=== PATIENT | male | born 1950 | race Caucasian/White ===

== ENCOUNTER 2022-03-01 14:35 | Outpatient (CLI) | payer MEDICARE, BC, SELFPAY | END 2022-03-01 14:36 | disposition home or self-care (01) | LOC: INJ CL 14:37 | PROVIDERS: Visit Provider Family Medicine | DX: M17.11 Unilateral primary osteoarthritis, right knee (principal); M25.561 Pain in right knee | CPT/HCPCS: 64454 ==

== ENCOUNTER 2022-03-15 12:08 | Outpatient (CLI) | payer MEDICARE, BC, SELFPAY | END 2022-03-15 12:09 | disposition home or self-care (01) | LOC: INJ CL 12:10 | PROVIDERS: PCP Internal Medicine; Visit Provider Family Medicine | DX: M17.11 Unilateral primary osteoarthritis, right knee (principal); M25.561 Pain in right knee; G89.29 Other chronic pain | CPT/HCPCS: 64624; J2250; J3010 ==

== ENCOUNTER 2022-09-02 10:48 | Outpatient (RCR) | payer MEDICARE, BC, SELFPAY ==
--- NOTE | 2022-09-02 11:56 | PT.OPEX ---
PT [place] [facility] Eval PT [facility] Eval Start: 09/02/22 09:34 Freq: Status: Active Protocol: Document 09/02/22 09:34 BRYAN (Rec: 09/02/22 11:53 BRYAN [id number]) E-signed By Yaneli Cruz Physical Therapy Outpatient Evaluation Insurance Information Recert Due Date 12/02/22 Insurance Name Medicare B,Blue Cross/Blue Shield Medical Diagnosis M16.11 R hip OA Z96.641 Presence of R artificial hip joint Treating Diagnosis M25.551 Pain in R hip M25.651 Stiffness of R hip Referring MD Navarro Subjective Subjective Pt presents pre-op RTHA on with Dr. Navarro. 1st joints replacement. Pt reports he has been getting cortisone injections in B hips and knees. Plans of getting R knee replacement in the near future. Pt states that hip pain started 4 years ago. Most activities are painful for patient. Uses SPC at baseline. Takes Tylenol for pain management. Pt has OP PT schedule in [place]. Pt lives with spouse who can assist. Multilevel home, 5 steps to enter B rails. Bedroom and bathroom are on main level. Tub shower and walk in shower in basement that he prefers. Shower chair in basement shower. Grab bars in tub, raised toilet seat. Has 2WW walker, 4WW, SPC, and sales service representative. Pain Comments 9.5/10 Date of Next Physician Visit 09/15/22 Date of Surgery (If applicable) 09/07/22 Current Work Status Retired Precautions Treatment Precautions/Contraindications PMHx: OA, aortic valve replacement Therapy Limitations/Systems Review Not Limited Objective Range of Motion Hip flexion L/R = 78/70 Hip IR L/R = 21/16 Hip ER L/R = 30/24 Strength Hip flexion L/R = 4/3 Hip abd L/R = 4/4 Hip add L/R = 4/4 Quads L/R = 3+/4+ Hamstrings L/R = 4/4 Balance & Gait Antalgic gait pattern with dec WB RLE, using SPC Assessment Assessment/Impression Pt presents pre-op RTHA on with Dr. Navarro. PMHx: OA, aortic valve replacement. Pt reports R hip pain for the last 4 years. Pain is exacerbated with all WB activities. Pt takes Tylenol for pain management. Has hx of cortisone injections. Pt displays impaired R hip strength and dec ROM as well as gait and balance deficits. Pt lives in multilevel home with spouse, 5 steps B rails to enter. Pt was educated on post-op precautions, HEP, POC, swelling and pain reduction strategies, equipment needs, getting up from the floor post -fall, fall prevention, and stair negotiation. Pt will be doing post-op therapy at [facility]. Primary Functional Limitations Pain with functional activity Dec R hip ROM and strength Gait deficits Plan of Care Rehabilitation Potential Excellent Physical Therapy Goals In one session: 1. Pt will be IND with HEP in order to perform at home post- op IND. 2. Pt will navigate 4 steps with B rails using proper step sequencing in order to enter/ exit home safely post-op. 3. Pt will provide verbal understanding of post-op precautions in order to reduce risk of post-op complications . Coordination/Communication With Referral Source Treatment Plan/Direct Interventions Self-Care/Home Management, Therapeutic Exercises Frequency/Duration 1x (pre-op only) Patient Will Be Discharged From Therapy Completion of LTG(s),Skills Plateau,Independent w/HEP, Independently Progressing Evaluation Billing Untimed Code Treatment Minutes 15 PT Eval No Charge No Complexity Low Certification Information Initial Certification Date 09/02/22 Ending Certification Date 12/02/22 Provider Signature Shows Agreement With POC & Medical Necessity Physician Comment/Change : Physician NPI Number #
== END 2022-10-13 10:36 | disposition home or self-care (01) ==
PROVIDERS: PCP Internal Medicine; Visit Provider Orthopaedic Surgery Sports Medicine
DX: M16.11 Unilateral primary osteoarthritis, right hip (principal); Z96.641 Presence of right artificial hip joint; Z51.89 Encounter for other specified aftercare
CPT/HCPCS: 97110; 97161; 97535

== ENCOUNTER 2022-09-05 11:27 | Outpatient (CLI) | payer MEDICARE, BC, SELFPAY | END 2022-09-05 11:28 | disposition home or self-care (01) | PROVIDERS: PCP Internal Medicine; Visit Provider Orthopaedic Surgery Sports Medicine | DX: Z01.818 Encounter for other preprocedural examination (principal) | CPT/HCPCS: 36415; 86850; 86900; 86901 ==

== ENCOUNTER 2022-09-07 10:02 | Day surgery (SDC) | payer MEDICARE, BC, SELFPAY ==
[2022-09-07] VITALS (24 sets, daily range): BP systolic 131–187; BP diastolic 78–98; PULSE 50–68; RESP 15–20; TEMP 36.2–37.2; O2SAT 96–100; BMI 29.6
[2022-09-07] MEDS: LACTATED RINGERS 1000 ML 1,000 ML 100 ML IV (11:00)
[2022-09-07] MEDS: SODIUM CHLORIDE 0.9 % (FLUSH) 10 ML SYRINGE IVF (11:00)
[2022-09-07] MEDS: ACETAMINOPHEN 500 MG TABLET 1000 MG PO ×3 (11:05→22:32)
[2022-09-07] MEDS: OXYCODONE (CR) 10 MG TAB.ER.12H PO (11:05)
--- NOTE | 2022-09-07 11:14 | CRLHL7_ITS ---
For Patients: As a result of the Cures Act, medical imaging exams and procedure reports are released immediately into your electronic medical record. You may view this report before your referring provider. If you have questions, please contact your health care provider. Indication: Postop Technique: AP hip center pelvis and lateral view right hip Findings/Impression: Hardware from a right total hip arthroplasty is in satisfactory position. Bone alignment is normal. No sign of acute fracture. Postop changes are within normal limits. Dictated by Ney Hidalgo MD @ 09/08/2022 9:58:29 AM (Electronically Signed)
[2022-09-07] MEDS: fentaNYL 100 MCG/2 ML inj IVP (11:37)
[2022-09-07] MEDS: MIDAZOLAM HCL 1 MG/ML inj IVP (11:37)
--- NOTE | 2022-09-07 11:49 | P.NB_ITS ---
Nerve Block Nerve Block Time Seen by Provider: 11:42 Date Seen: 09/07/22 Type of block requested by surgeon for post-operative analgesia: PRISCILA/LFCN Side: right Time out performed: Yes Verification of patient name: Yes Verification of date of : Yes Site marking: site marked Name of person performing procedure: Felix Continuous monitoring Was continuous monitoring of O2 sat, B/P, monitor and storage bin tender, recorded every 15 minutes?: Yes Procedure Checklist: sterile prep, needles and gloves Ultrasound guided. Images saved: Yes Medications given in 5ml increments after negative aspiration: Ropivicaine %: 0.5 mL: 30 Needle gauge: 20 Decadron (mg): 10 Precedex (mcg): 25 Patient tolerated procedure well: Yes Additional comments: Needle noted below psoas tendon needle noted adjacent to LFCN Block Charges Block Charge (with Pro Fee): Other Periph Nerve Block Use of Ultrasound Machine for Block: Yes- US Guidance/pain block
--- NOTE | 2022-09-07 11:49 | SUR.PREOP ---
TIME?OUT:?1136 PT/Jolene Millard RN/Dr. Felix MDA?VERIFICATION?OF?SURGICAL?SITE right hip,?PROCEDURE,?AND?CONSENT OBTAINED?PRIOR?TO?INVASIVE?PROCEDURE.
--- NOTE | 2022-09-07 11:50 | W.ANESCHARGE ---
Anesthesia Charges Start Date/Time Anesthesia Start Date: 09/07/22 Anesthesia Start Time: 12:26 Stop Date/Time Anesthesia Stop Date: 09/07/22 Anesthesia Stop Time: 15:19 Summary Extremes of Age - Over 70 or under 1: MDA
--- NOTE | 2022-09-07 12:00 | CRLHL7_ITS ---
For Patients: As a result of the Cures Act, medical imaging exams and procedure reports are released immediately into your electronic medical record. You may view this report before your referring provider. If you have questions, please contact your health care provider. Indication: Hip replacement surgery Technique: AP hip fluoroscopic image. Fluoroscopy time 39.2 seconds. Findings/Impression: Hardware from a right total hip arthroplasty is in satisfactory position. Dictated by Ney Hidalgo MD @ 09/08/2022 9:48:37 AM (Electronically Signed)
--- NOTE | 2022-09-07 12:12 | PM.IMPN1 ---
Progress Note: A&P Assessment and plan (1) Osteoarthritis of right hip: Problem details: extreme, [id number] Status: Acute Plan 1) s/p RTHA -pain control; diet; dvt ppx per surgery -cbc and bmp in am 2) Hx of CAD/HTN/CABG -continue norvasc -hold lisinopril and hctz for now -continue statin 3) HX of AVR 4) Hx of CKD 3 -bmp in am 5) Hx of HLD; continue statin 6) Hx of GERD; continue prevacid Subjective Date Seen: 09/07/22 Interval history: PREOPERATIVE DIAGNOSIS: 1. Right hip osteoarthritis, severe, primary PROCEDURE: 1. Right total hip arthroplasty-anterior approach ANESTHESIA: General endotracheal anesthetic EBL: 500 mL the patient is stable currently and denies CP, sob, nausea, vomiting, abdominal pain Exam Narrative: Exam Narrative: Gen: no acute distress HEENT: NCAT EOMI mmm CV: RRR normal s1 s2 Lungs: CTAB Abd: Soft,nt, nd Neuro: Alert, oriented, CN grossly intact; nonfocal screening?exam Psych: appropriate affect MSK: age appropriate muscle mass Skin; Warm, dry no rash on face Const: Vital Signs, click to edit/add: Vital Signs - 24 hr 09/07/22 11:16 09/07/22 11:37 09/07/22 11:40 Temperature 98.4 F Pulse Rate 58 L 62 61 Respiratory Rate 16 16 16 Blood Pressure 166/87 H 176/88 H 154/90 H Pulse Oximetry 97 98 100 Oxygen Delivery Me thod Room Air Nasal Cannula Nasal Cannula Oxygen Flow Rate 2 2 09/07/22 11:45 Temperature Pulse Rate 63 Respiratory Rate 16 Blood Pressure 155/91 H Pulse Oximetry 100 Oxygen Delivery Me thod Nasal Cannula Oxygen Flow Rate 2
--- NOTE | 2022-09-07 14:19 | PM.ORPRC ---
Procedure Note Date of procedure: 09/07/22 Procedure: PREOPERATIVE DIAGNOSIS: 1. Right hip osteoarthritis, severe, primary POSTOPERATIVE DIAGNOSIS: 1. Right hip osteoarthritis, severe, primary PROCEDURE: 1. Right total hip arthroplasty-anterior approach 2. 96801 - intraoperative fluoroscopy up to 1 hour. SURGEON: Garret Navarro MD. COOKER SULFATE: Gray Chávez Pac; Kathia Caceres Pac - Of note, a skilled licensed physical therapist assistant was critical for this case to aid in patient positioning, tissue retraction, limb manipulation/positioning, and closure. ANESTHESIA: General endotracheal anesthetic EBL: 500 mL IMPLANTS: DePuy J&J uncemented total hip [place] cup size 58, hole eliminator, +4 neutral liner Actis stem, standard offset, size 9 +5 mm ceramic 36 mm head COMPLICATIONS: None evident INDICATIONS: The patient is a pleasant 72-year-old male who has experienced severe right hip pain and difficulty bearing weight. Workup included x-rays which revealed severe osteoarthrosis in the hip. Given the deformity, the dysfunction, and the pain, as well as the failure of nonoperative management, recommendation was made for surgery. FINDINGS: Moderate effusion upon entering joint. Significant contracture of all soft tissues including capsule and musculotendinous structures around the hip. Full-thickness chondral loss diffusely throughout the femoral head and acetabulum. Large osteophytes around both this well. DESCRIPTION OF PROCEDURE: Following a thorough discussion of risks, benefits, and alternatives consent was obtained and the right hip was marked. The patient was brought to the operating room and placed supine on the operating table. Induction of anesthesia was undertaken. 2 g IV Ancef and 1 g tranexamic acid was administered within 1 hr of incision preoperatively. Proper time-out was performed identifying proper patient, site, procedure. The operative extremity was prepped and draped in the appropriate sterile fashion using ChloraPrep after the patient was positioned on the [place] table with head in neutral alignment and all bony prominences well padded. C-arm fluoroscopic imaging was utilized to confirm proper pelvis rotation and position, and to get true AP films of both the contralateral left, and the affected right hip. This is for comparison. A longitudinal incision was made starting approximately 1 cm distal to the ASIS, and 3-4 cm lateral. The incision was extended distally aiming toward the lateral border the patella. Sharp incision through skin and bovie cautery through the subcutaneous tissue allowed identification of the TFL fascia. This was sharply divided, and the fascia bluntly released from the muscle fibers as we dissected medial. Upon coming to the medial border, we were able to retract the TFL laterally, and penetrated the deeper fascia and identify the crossing circumflex vessels. These were ligated/cauterized. The rectus was elevated from the capsule, and retractors placed laterally and medially along the femoral neck to help with visualization of the capsule. We then performed an inverted T capsulotomy. The capsule was tagged for later repair. Retractors were placed inside the capsule. The femoral neck was visualized after releasing medially down to the lesser trochanter, along the saddle laterally, and up onto the acetabulum. The femoral neck cut was made in line with our preoperative templating. The head was removed in a single piece, and sized. We turned our attention to acetabular preparation. Initially, the labrum was resected from around the perimeter, the pulvinar was excised, allowing us to visualize the false wall. We started the reaming with a 43 mm reamer. This was medialized down to the true wall. We then enlarged our reamers sequentially up to one size less than the selected cup size. We trialed at the same size and found it to have an excellent fit. The selected cup was then opened, inserted, and impacted in line with the goal of 40? of abduction, and 20-25? of anteversion. This was confirmed on C-arm fluoroscopic imaging to be in the appropriate/goal position. Once the cup was placed we placed a hole eliminator and a liner consistent with preop planning. Attention was turned to the femoral preparation. The limb was extended, externally rotated, and adducted. The posteromedial capsule was released, as retractors were placed allowing excellent access to the proximal femur. Initially a box office agent was followed by canal finder followed by various broaches. We broached sequentially up to the size noted above, found it to have excellent rotational control, and trialing various heads and necks, revealed that appropriate neck offset, and the above noted head size provided the greatest stability, and episcopalian of length, and offset. C-arm fluoroscopic imaging confirmed position of the stem, as well as leg lengths, which were compared with the pre procedure all fluoroscopic images. Trial implants were removed, the real femoral stem inserted, as was the appropriate head. After reducing, the leg was placed through range of motion and stability was confirmed anterior, posterior, and lateral. A 3 min Betadine soak was then performed, and thorough irrigation with normal saline followed. Closure of the capsule was performed with #1 PDS. Bleeding was confirmed to be controlled at this stage, and the TFL fascia was closed with #0 strata fix. Subcutaneous, and subcuticular closure was performed with 2-0 Vicryl and 4-0 Monocryl, respectively. Dressings were applied, and the patient was awoken from anesthesia and transferred the PACU in stable condition. A skilled licensed physical therapist assistant was critical for this case to aid in patient positioning, tissue retraction, acetabular and proximal femoral exposure, limb manipulation/positioning, dislocation/relocation, patient safety, and closure. PLAN: 1. Weight bear as tolerated operative extremity. 2. 23 hr perioperative antibiotics. 3. Ice. 4. PT/OT consults for ambulation assistance/mobility education. 5. Social work consult for discharge planning. 6. DVT prophylaxis with at SCDs, Baldev [place], and Xarelto x5 days followed by aspirin for a total of 1 month..
--- NOTE | 2022-09-07 15:25 | W.ANESCHARGE ---
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
[2022-09-07] MEDS: fentaNYL 100 MCG/2 ML inj 50 MCG IVP (15:30)
[2022-09-07] MEDS: LABETALOL HCL 5 MG/ML inj IVP (15:40)
[2022-09-07] MEDS: LACTATED RINGERS 1000 ML 1,000 ML 75 ML IV (16:08)
[2022-09-07] MEDS: CEFAZOLIN 2 GM in 0.9 % SODIUM CHLORIDE Mini-bag 100 ML IVPB (18:43)
[2022-09-07] MEDS: SENNOSIDES 1 TAB TABLET 2 TAB PO (20:30)
[2022-09-07] MEDS: CELECOXIB 200 MG CAPSULE PO (20:30)
[2022-09-07] MEDS: OMEPRAZOLE 20 MG CAPSULE DR PO (22:33)
--- NOTE | 2022-09-07 23:09 | PC.NURSE ---
Shift note: Pt was received to room 260 at 1600. Alert on arrival but confirmed feeling weak. Dressing appeared clean and dry. Pain was rated at 4 on arrival. Vital signs were stable but the heart rate was low at 50. Pt was able to wiggle right toes and able move the right leg from side to side on arrival. Schedule Tylenol given which was effective in managing pain. Pt was able to ambulate with A1, walker and GB to BR. Had about 360ml of urine within 4hours of arrival. Tolerated regular diet without any abdominal symptoms.
[2022-09-08] MEDS: OXYCODONE 5 MG TABLET PO ×3 (00:06→09:44)
[2022-09-08 03:30] VITALS: BP 155/83; PULSE 78; RESP 16; TEMP 37; O2SAT 96
[2022-09-08] MEDS: CEFAZOLIN 2 GM in 0.9 % SODIUM CHLORIDE Mini-bag 100 ML IVPB (03:30)
[2022-09-08] MEDS: ACETAMINOPHEN 500 MG TABLET 1000 MG PO (03:32)
--- NOTE | 2022-09-08 06:44 | PC.NURSE ---
Pt is oriented to self x3. Afebrile. Pt reports 6/10 pain in right hip, pain managed with PRN and scheduled medications. Right hip dressing CDI. Pt denies chest pain, SOB, N/V. Pt is tolerating a regular diet and voiding. Pt is up SBA with walker and gait belt. Pt slept intermittently throughout night.?
[2022-09-08 07:01] LABS: Basophils Absolute Auto 0.01 K/uL (0.00-0.30); Basophils Percent Auto 0.1 % (0.0-3.0); Eosinophils Absolute Auto 0.01 K/uL (0.00-0.50); Eosinophils Percent Auto 0.1 % (0.0-7.0); Hematocrit 31.4 % (37.0-53.0); Immature Granulocytes Abs Auto 0.04 K/uL (0.00-0.30); Immature Granulocytes Pct Auto 0.4 %; Mean Corpuscular HGB Conc 35 gm/dL (32-36); Mean Corpuscular Hemoglobin 32 pg (26-34); Mean Corpuscular Volume 90 fL (80-100); Monocytes Percent Auto 10.3 % (0.0-11.0); Neutrophils Percent Auto 84.1 % (42.0-72.0); Platelet Count* 120 K/uL (140-440); RDW Coefficient of Variation % 12.9 % (11.5-15.5); Red Blood Count 3.48 m/uL (4.30-5.90); White Blood Count* 9.95 K/uL (4.50-11.00)
[2022-09-08 07:05] LABS: Slide Review Reflex No
[2022-09-08 07:12] LABS: Sodium* 128 mmol/L (135-149)
[2022-09-08 07:13] LABS: Potassium* 4.2 mmol/L (3.6-5.1)
[2022-09-08 07:15] LABS: Est. Creatinine Clearance* 75.46; Estimated Glomerular Filt Rate 80 ml/min
[2022-09-08 07:16] LABS: Blood Urea Nitrogen* 18 mg/dL (7-30)
[2022-09-08] MEDS: CELECOXIB 200 MG CAPSULE PO (08:59)
[2022-09-08] MEDS: OMEPRAZOLE 20 MG CAPSULE DR PO (08:59)
[2022-09-08] MEDS: RIVAROXABAN 10 MG TABLET PO (08:59)
[2022-09-08] MEDS: AMLODIPINE 5 MG TABLET PO (08:59)
[2022-09-08] MEDS: ATORVASTATIN CALCIUM 40 MG TABLET PO (08:59)
[2022-09-08] MEDS: oxyBUTYnin chloride 5 MG TAB.ER.24 10 MG PO (08:59)
[2022-09-08] MEDS: SENNOSIDES 1 TAB TABLET 2 TAB PO (08:59)
[2022-09-08] MEDS: PARoxetine 20 MG TABLET PO (08:59)
[2022-09-08 09:00] VITALS: BP 119/71; PULSE 78; RESP 20; TEMP 37.2; O2SAT 98
--- NOTE | 2022-09-08 09:13 | PM.ORPN ---
Subjective Subjective Time Seen by Provider: 08:30 Date Seen: 09/08/22 Principal diagnosis: Status post right hip replacement Interval history: Calixto is comfortable this morning. He will be discharging to home today. Ortho Exam Narrative Exam Narrative: Alert and oriented x3. Patient is in no acute distress. Converses without labored breathing. Hearing is grossly intact. Ambulates with a walker. Examination of the right hip shows the dressing is intact. Mild soft tissue edema. No erythema or warmth or sign of infection. CMS intact right lower extremity. Bilateral calves are soft nontender. Ambulates well throughout his room. Const Vital Signs, click to edit/add: Vital Signs - 24 hr 09/07/22 11:16 09/07/22 11:37 09/07/22 11:40 Temperature 98.4 F Pulse Rate 58 L 62 61 Pulse Rate [Pulse Oximeter] Respiratory Rate 16 16 16 Blood Pressure 166/87 H 176/88 H 154/90 H Blood Pressure [Right Arm] Pulse Oximetry 97 98 100 Oxygen Delivery Method Room Air Nasal Cannula Nasal Cannula Oxygen Flow Rate 2 2 09/07/22 11:45 09/07/22 15:15 09/07/22 15:20 Temperature 97.7 F Pulse Rate 63 65 64 Pulse Rate [Pulse Oximeter] Respiratory Rate 16 17 18 Blood Pressure 155/91 H 175/91 H 186/87 H Blood Pressure [Right Arm] Pulse Oximetry 100 97 97 Oxygen Delivery Method Nasal Cannula Room Air Oxygen Flow Rate 2 09/07/22 15:25 09/07/22 15:30 09/07/22 15:35 Temperature Pulse Rate 59 L 62 61 Pulse Rate [Pulse Oximeter] Respiratory Rate 17 17 18 Blood Pressure 187/96 H 179/98 H 183/90 H Blood Pressure [Right Arm] Pulse Oximetry 98 96 96 Oxygen Delivery Method Oxygen Flow Rate 09/07/22 15:40 09/07/22 15:45 09/07/22 15:50 Temperature 97.7 F Pulse Rate 61 54 L 50 L Pulse Rate [Pulse Oximeter] Respiratory Rate 20 15 16 Blood Pressure 180/92 H 169/84 H 170/85 H Blood Pressure [Right Arm] Pulse Oximetry 96 96 97 Oxygen Delivery Method Room Air Oxygen Flow Rate 09/07/22 16:15 09/07/22 16:19 09/07/22 16:32 Temperature 97.4 F L 97.4 F L 97.4 F L Pulse Rate Pulse Rate [Pulse Oximeter] 50 L 51 L 53 L Respiratory Rate 16 16 16 Blood Pressure Blood Pressure [Right Arm] 156/86 H 155/83 H 153/83 H Pulse Oximetry 97 96 97 Oxygen Delivery Method Room Air Room Air Room Air Oxygen Flow Rate 09/07/22 16:45 09/07/22 17:00 09/07/22 17:30 Temperature 97.2 F L 97.7 F 97.7 F Pulse Rate Pulse Rate [Pulse Oximeter] 56 L 59 L 59 L Respiratory Rate 16 16 16 Blood Pressure Blood Pressure [Right Arm] 164/84 H 150/78 H 159/90 H Pulse Oximetry 96 97 97 Oxygen Delivery Method Room Air Room Air Room Air Oxygen Flow Rate 09/07/22 18:00 09/07/22 19:00 09/07/22 19:00 Temperature 98.6 F 98.6 F 98.6 F Pulse Rate Pulse Rate [Pulse Oximeter] 67 67 67 Respiratory Rate 16 16 16 Blood Pressure Blood Pressure [Right Arm] 155/81 H 131/83 131/83 Pulse Oximetry 96 96 96 Oxygen Delivery Method Room Air Room Air Room Air Oxygen Flow Rate 09/07/22 20:00 09/07/22 22:00 09/07/22 23:30 Temperature 98.7 F 98.9 F 98.6 F Pulse Rate Pulse Rate [Pulse Oximeter] 62 65 68 Respiratory Rate 16 16 16 Blood Pressure Blood Pressure [Right Arm] 145/86 H 149/86 H 169/90 H Pulse Oximetry 96 97 98 Oxygen Delivery Method Room Air Room Air Room Air Oxygen Flow Rate 09/07/22 23:55 09/08/22 03:30 09/08/22 09:00 Temperature 98.6 F 98.6 F 99 F Pulse Rate Pulse Rate [Pulse Oximeter] 68 78 78 Respiratory Rate 18 16 20 Blood Pressure Blood Pressure [Right Arm] 169/90 H 155/83 H 119/71 Pulse Oximetry 98 96 98 Oxygen Delivery Method Room Air Room Air Room Air Oxygen Flow Rate Assessment and Plan Assessment and plan (1) Status post right hip replacement: Problem details: 09/07/2022 Status: Acute Assessment and Plan: Plan for discharge is today to home if they meet discharge criteria. DVT prophylaxis includes Xarelto 10 mg daily for total of 5 days, then aspirin 81 mg twice daily for 30 days, Baldev stockings x1 month may remove for 1 hr per day, frequent ambulation Remove dressing 1 week. Observe wound and phone Orthopedics with any questions or concerns Use Ice on operative hip unrestricted. Return to clinic in 1 week with PA for a wound check Return to clinic in [address] Galindo Minimize narcotic use. Wean off and discontinue soon as possible. Activities as tolerated. No strenuous activity. Attend outpt PT
--- NOTE | 2022-09-08 12:45 | PC.NURSE ---
shift note: vss stable. pt up 1/walker. pt rating Rt hip pain 3-05/23. Pt medicated prior to PT this a.m. cap refill intact bilat l/e. cms intact bilat. Iv dc'd intact Lt hand. reviewed dc instrutions and copies sent with pt at in. Reviewed DVT precautions, IS post hospital use and using teds during recovery. Pt sent with 2 ice paks and new packet of meron socks.
== END 2022-09-08 11:40 | disposition home or self-care (01) ==
LOC: OR 10:03 → MEDSURG 10:08
PROVIDERS: PCP Internal Medicine; Visit Provider Orthopaedic Surgery Sports Medicine
PROC: (CPT 27130; principal; 2022-09-07 12:00)
DX: M16.11 Unilateral primary osteoarthritis, right hip (principal); G89.18 Other acute postprocedural pain; I12.9 Hypertensive chronic kidney disease with stage 1 through stage 4 chronic kidney disease, or unspecified chronic kidney disease; N18.30 Chronic kidney disease, stage 3 unspecified; I25.10 Atherosclerotic heart disease of native coronary artery without angina pectoris; Z95.1 Presence of aortocoronary bypass graft; K21.9 Gastro-esophageal reflux disease without esophagitis
CPT/HCPCS: 27130; 01214; 36415; 64450; 73501; 76942; 82565; 84132; 84295; 84520; 85025; 97110; 97116; 97161; 97165; 97535; 99100; A9270; C1776; J0330; J0690; J1100; J1170; J2250; J2405; J2704; J2795; J3010; J3490; J7120

== ENCOUNTER 2022-11-30 14:55 | Outpatient (RCR) | payer MEDICARE, BC, SELFPAY ==
--- NOTE | 2022-11-30 16:07 | PT.OPEX ---
PT [place] Outpatient Eval PT [facility] Outpatient Eval Start: 11/30/22 12:51 Freq: Status: Active Protocol: Document 11/30/22 12:52 ENM (Rec: 11/30/22 15:57 ENM [id number]) E-signed By Rosalind Bobo, DPT Physical Therapy Outpatient Evaluation Insurance Information Recert Due Date 02/22/23 Insurance Name Medicare B Medical Diagnosis unilateral primary osteoarthritis, right knee presence of right artificial knee joint s/p right TKA 12/07/22 Treating Diagnosis right knee pain, impaired ambulation, decreased knee ROM , decreased knee strength Referring MD Navarro Subjective Subjective Vasquez presents to PT for pre- operative appointment prior to R TKA to be performed on by Dr. Navarro. [place]. He had his right hip replaced in August which went well. Has a 2WW and 4WW for home. Also has a cane. He has had multiple knee injections for years and they are no longer helping to manage his pains which is why he is having the knee replaced. At rest the knee is ok but walking is a problem for it. For additional information on home set up see pre-op flowsheet. Imaging: degenerative spine. Particularly severe disc and facet disease L4-5 and L5-S1. Right hip prosthesis PMHx: right hip replacement Pain Comments moderate knee pain Current Work Status Retired Objective Other/Pertinent Objective Knee ROM L 0-1-115 R 0-7-109 strength: able to complete SLR B with ~10 deg lag gait/balance: Patient ambulates with antalgic gait pattern, decreased RLE weight bearing, decreased knee extension bilaterally. palpation/joint mobility: no tenderness to palpation along right knee musculature or joint line Posture: Patient stands with flexed posture and bilateral knee valgus positioning Assessment Assessment/Impression Patient is a 72 year old male presenting for pre op visit prior to R TKA on 12/07. Patient has difficulty with walking longer distances at this time due to his knee pains. They will have support from their spouse at home. He has all necessary assistive devices and house modification . Upon assessment patient displays decreased knee ROM, decreased proximal hip strength and antalgic gait pattern. Patient will be seen post operatively at [facility] in [place] to reassess impairments that will be addressed with skilled care. Vasquez would greatly benefit from skilled PT to progress strength, ROM and ambulation post operatively in order to perform all household duties and recreational activities without significant difficulty or discomfort. Primary Functional Limitations walking Plan of Care Rehabilitation Potential Good Physical Therapy Goals After pre-op visit: ? Patient will be independent with HEP ? Patient will verbalize knowledge of stair navigation and proper sequencing ? Patient will have knowledge on home adaptations and use of assistive devices post operatively ? Patient will have knowledge of edema management Coordination/Communication With Referral Source Treatment Plan/Direct Interventions Gait Training,Manual Therapy, Neuromuscular Re-ed, Therapeutic Activities, Therapeutic Exercises Frequency/Duration 1x visit prior to surgery on 12/07/22. Patient scheduled to start outpatient PT at another facility. They have HEP to start with after surgery. Patient Will Be Discharged From Therapy Completion of LTG(s), Independent w/HEP Evaluation Billing Untimed Code Treatment Minutes 25 Complexity Low Certification Information Initial Certification Date 11/30/22 Ending Certification Date 02/22/23 Provider Signature Shows Agreement With POC & Medical Necessity Physician Signature & Date Requested Please Sign/Date Here Physician Comment/Change : Physician NPI Number #
== END 2023-03-30 23:59 | disposition home or self-care (01) ==
PROVIDERS: PCP Internal Medicine; Visit Provider Orthopaedic Surgery Sports Medicine
DX: M17.11 Unilateral primary osteoarthritis, right knee (principal); Z51.89 Encounter for other specified aftercare
CPT/HCPCS: 97110; 97161

== ENCOUNTER 2022-12-07 08:22 | Day surgery (SDC) | payer MEDICARE, BC, SELFPAY ==
[2022-12-07] VITALS (24 sets, daily range): BP systolic 103–188; BP diastolic 56–109; PULSE 52–71; RESP 12–20; TEMP 36.2–37.1; O2SAT 94–100; BMI 29.9
[2022-12-07] MEDS: ACETAMINOPHEN 500 MG TABLET 1000 MG PO ×3 (09:30→22:28)
[2022-12-07] MEDS: OXYCODONE (CR) 10 MG TAB.ER.12H PO (09:30)
[2022-12-07] MEDS: LACTATED RINGERS 1000 ML 1,000 ML 100 ML IV ×2 (09:40→10:59)
[2022-12-07] MEDS: MIDAZOLAM HCL 1 MG/ML inj IVP (09:50)
[2022-12-07] MEDS: fentaNYL 100 MCG/2 ML inj 50 MCG IVP (09:50)
--- NOTE | 2022-12-07 09:52 | SUR.PREOP ---
TIME?OUT:?right knee 0952 PT/RN/MDA?VERIFICATION?OF?SURGICAL?SITE,?PROCEDURE,?AND?CONSENT OBTAINED?PRIOR?TO?INVASIVE?PROCEDURE.
--- NOTE | 2022-12-07 10:17 | CRLHL7_ITS ---
For Patients: As a result of the Cures Act, medical imaging exams and procedure reports are released immediately into your electronic medical record. You may view this report before your referring provider. If you have questions, please contact your health care provider. Indication: Post op right TKA Technique: Two views right knee Findings/Impression: Hardware from a right total knee arthroplasty is in satisfactory position. Bone alignment is normal. No sign of acute fracture. Postop changes are within normal limits. Dictated by Ney Hidalgo MD @ 12/07/2022 1:09:37 PM (Electronically Signed)
[2022-12-07] MEDS: TRANEXAMIC ACID 100 MG/ML INJ 1000 MG IV (10:27)
[2022-12-07] MEDS: CEFAZOLIN 2 GM in 0.9 % SODIUM CHLORIDE Mini-bag 100 ML IVPB ×2 (10:27→16:07)
--- NOTE | 2022-12-07 10:37 | SUR.OPER ---
PATIENT QUESTIONS ANSWERED SATISFACTORILY PREOPERATIVELY.? PATIENT BROUGHT TO OR #2 PER CART AFTER ADMINISTRATION OF A BLOCK.? Patient positioned supine on OR #2 bed.? The perioperative?team supported arms bilaterally on arm boards.? Final approval of positioning by surgeon.?
--- NOTE | 2022-12-07 11:36 | P.ORPRC_ITS ---
Procedure Note Date of procedure: 12/07/22 Procedure: PREOPERATIVE DIAGNOSIS: 1. Right knee osteoarthritis, primary, severe, valgus POSTOPERATIVE DIAGNOSIS: 1. Right knee osteoarthritis, primary, severe, valgus PROCEDURE: 1. Right total knee arthroplasty SURGEON: Garret Navarro MD. CARDROOM ATTENDANT: ROJELIO Payne - Of note, a skilled ssn/ssbn assistant navigator was critical for this case to aid in patient positioning, tissue retraction, limb manipulation/positioning, and closure. ANESTHESIA: Spinal anesthetic IMPLANTS: DePuy J&J all cemented TKA - Attune PS femur size 8, size 8 tibia, 5 poly spacer, 41mm patella TOURNIQUET: 90 min at 300 torr EBL: 50 ml COMPLICATIONS: None evident INDICATIONS: The patient is a pleasant 72-year-old male who has experienced severe right knee pain and difficulty bearing weight. Workup included x-rays which revealed severe osteoarthrosis in the knee. Given the deformity, the dysfunction, and the pain, as well as the failure of nonoperative management, recommendation was made for surgery. FINDINGS: Genu valgum with significant lateral compartment arthritic disease. Substantial patellofemoral compartment OA as well. To a lesser degree medial compartment. Large effusion upon entering the joint. Significant synovitis diffusely throughout the knee. DESCRIPTION OF PROCEDURE: Following a thorough discussion of risks, benefits, and alternatives consent was obtained and the right knee was marked. The patient was brought to the operating room and placed supine on the operating table. Induction of anesthesia was undertaken. 2 g IV Ancef and 1 g tranexamic acid was administered within 1 hr of incision preoperatively. Proper time-out was performed identifying proper patient, site, procedure. The operative extremity was prepped and draped in the appropriate sterile fashion using Chl oraPrep after the patient was positioned supine with all bony prominences well padded. A longitudinal, anterior, midline skin incision was made starting approximately 3cm proximal to the superior pole of the patella and advanced distal to the tibial tubercle. A median parapatellar arthrotomy was created. A medial subperiosteal sleeve was created with knife, marcelino elevator and curved osteotome. The retropatellar fatpad was resected and the synovium in the suprapatellar pouch excised to visualize the anterior femoral cortex. Femoral preparation was performed via an intramedullary guide. Step drill allowed access into the femoral canal. The distal cutting guide was placed with 6 ? of valgus and 12 mm cut on the distal femur due to a 10 degree flexion contracture. Femur was sized using a posterior referencing guide as well as trans epicondylar axis and Whitesides line in 5 ? of external rotation. This found have a best fit with the sizing noted above. The 4 in 1 cutting block was then placed, and the distal femur shaped accordingly. The box cut was then created and the trial implant inserted to confirm appropriate fit. We turned our attention to the proximal tibia. Extramedullary guide was utilized for cutting with the goal of being 90 degree cut from the mechanical axis of the tibia in the varus/valgus plane utilizing tibial crest as the primary alignment. Initially a 3 mm resection was performed from the medial tibial plateau. An additional 2 mm did require resection. Ultimately, balancing was achieved in both flexion and extension in both varus and valgus. The knee was able to achieve full extension as well comfortably. The patella was initially measured and found have a thickness of 25 mm. It was resected back to approximately 15.5 mm. It was sized to be a best fit with as noted above. This was drilled, trial placed. All trials were placed and found to have an excellent stability and balance. At this stage, trial implants were removed, the knee was thoroughly irrigated with normal saline, and the cement was mixed. After irrigation, the knee was thoroughly dried, and cement placed, with the real tibial and femoral implants placed along with the patella. Trial poly spacer was placed and confirmed to have excellent range of motion and full extension, and the real poly spacer opened and inserted. All extra cement was removed, and a 3 min Betadine soak performed. Finally, a final irrigation round with normal saline was performed. Closure performed with 0 Vicryl and #0 Stratafix for the quad tendon/retinaculum. 2-0 Vicryl for the subcutaneous and 4-0 Stratafix for subcuticular closure. Dressings were applied and the patient was awoken from anesthesia after the tourniquet deflated and transferred the PACU in stable condition. A skilled ssn/ssbn assistant navigator was critical for this case to aid in patient positioning, tissue retraction, bone exposure, limb manipulation/positioning, patient safety, and closure. PLAN: 1. Weight bear as tolerated operative extremity. 2. 23 hr perioperative antibiotics. 3. Ice. 4. PT/OT consults for ambulation assistance/mobility education. 5. Social work consult for discharge planning. 6. DVT prophylaxis with at SCDs, Baldev Hose, and aspirin twice daily.
--- NOTE | 2022-12-07 11:36 | W.PM.H&PU ---
History & Physical Update History & Physical Update H&P Reviewed and patient assessed: No changes noted
--- NOTE | 2022-12-07 11:57 | W.ANESCHARGE ---
Anesthesia Charges Start Date/Time Anesthesia Start Date: 12/07/22 Anesthesia Start Time: 10:04 Stop Date/Time Anesthesia Stop Date: 12/07/22 Anesthesia Stop Time: 12:19 Summary Extremes of Age - Over 70 or under 1: MDA
--- NOTE | 2022-12-07 11:58 | P.NB_ITS ---
Nerve Block Nerve Block Time Seen by Provider: 09:59 Date Seen: 12/07/22 Type of block requested by surgeon for post-operative analgesia: adductor canal Side: right Time out performed: Yes Verification of patient name: Yes Verification of date of : Yes Site marking: site marked Name of person performing procedure: Felix Continuous monitoring Was continuous monitoring of O2 sat, B/P, punch press setter, recorded every 15 minutes?: Yes Procedure Checklist: sterile prep, needles and gloves Ultrasound guided. Images saved: Yes Medications given in 5ml increments after negative aspiration: Ropivicaine %: 0.5 mL: 20 Needle gauge: 20 Decadron (mg): 10 Precedex (mcg): 25 Patient tolerated procedure well: Yes Additional comments: Needle noted adjacent to nerve Block Charges Block Charge (with Pro Fee): Femoral Nerve Use of Ultrasound Machine for Block: Yes- US Guidance/pain block
--- NOTE | 2022-12-07 11:58 | W.PM.NB ---
Nerve Block Nerve Block Time Seen by Provider: 09:59 Date Seen: 12/07/22 Type of block requested by surgeon for post-operative analgesia: geniculars Side: right Time out performed: Yes Verification of patient name: Yes Verification of date of : Yes Site marking: site marked Name of person performing procedure: Felix Continuous monitoring Was continuous monitoring of O2 sat, B/P, instrument maker, recorded every 15 minutes?: Yes Procedure Checklist: sterile prep, needles and gloves Medications given in 5ml increments after negative aspiration: Ropivicaine %: 0.5 mL: 9 Needle gauge: 25 Patient tolerated procedure well: Yes Block Charges Block Charge (with Pro Fee): Genicular Nerve Block Use of Ultrasound Machine for Block: No
--- NOTE | 2022-12-07 12:19 | W.ANESCHARGE ---
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
[2022-12-07] MEDS: LACTATED RINGERS 1000 ML 1,000 ML 75 ML IV (14:10)
[2022-12-07] MEDS: OXYCODONE 5 MG TABLET PO ×3 (16:12→18:53)
[2022-12-07] MEDS: AMLODIPINE 5 MG TABLET PO (16:46)
--- NOTE | 2022-12-07 16:56 | PM.IMCN1 ---
Date of Consult Patient: Kay Patient Consult date: 12/07/22 Requesting Physician: Orthopedics Primary Care Provider: Sanna Gaitan MD Consult Narrative Reason for consult: Medical management after knee surgery Narrative: Calixto Kiser is a 72 year old male seen following right knee arthroplasty performed by Dr. Navarro. There were no operative complications. Dr. Navarro requests medical consultation for managing postoperative care and chronic medical problems. Patient reports doing well. He is having no significant pain in his knee. He reports generally otherwise feeling well. No dyspnea, fever, nausea, chills. Preoperatively he reports he was generally doing well. He has had some recent medical problems which are stable. These include urinary frequency, especially at night. This is been going on for years. He had a prostatectomy for prostate cancer 1 year ago and it did not have any appreciable effect on this. He has been on oxybutynin and Myrbetriq without adequate relief of symptoms. He saw his urologist who felt there were no complications related to his prostate cancer and prostatectomy. His bladder scan showed a residual of 0 mL of urine. He reports some generalized pains in addition to his right knee. This summer he had right total hip arthroplasty without complications. He reports his recovery at home went quite well for him. Review of Systems Narrative: Review of systems is negative except as noted above [facility] Medical History (Updated 12/07/22 @ 17:08 by Nazario Lopez MD) Anemia ?D64.9 - Anemia, unspecified (ICD-10) Raynauds disease ?I73.00 - Raynaud's syndrome without gangrene (ICD-10) Hypertension ?I10 - Essential (primary) hypertension (ICD-10) Thrombocytopenia ?D69.6 - Thrombocytopenia, unspecified (ICD-10) CKD stage G3a/A1, GFR 45-59 and albumin creatinine ratio <30 mg/g ?N18.31 - Chronic kidney disease, stage 3a (ICD-10) CAD (coronary artery disease) ?I25.10 - Atherosclerotic heart disease of [place] coronary artery without angina pectoris (ICD-10) GERD (gastroesophageal reflux disease) ?K21.9 - Gastro-esophageal reflux disease without esophagitis (ICD-10) Raynaud phenomenon ?I73.00 - Raynaud's syndrome without gangrene (ICD-10) Osteoarthritis of hips, bilateral ?M16.0 - Bilateral primary osteoarthritis of hip (ICD-10) Osteoarthritis of knees, bilateral ?M17.0 - Bilateral primary osteoarthritis of knee (ICD-10) Surgical History History of robot-assisted laparoscopic radical prostatectomy ?Z90.79 - Acquired absence of other genital organ(s) (ICD-10) Status post right hip replacement (09/07/22) ?Z96.641 - Presence of right artificial hip joint (ICD-10) S/P CABG x 1 ?Z95.1 - Presence of aortocoronary bypass graft (ICD-10) H/O prostate biopsy ?Z98.890 - Other specified postprocedural states (ICD-10) Aortic valve replaced (07/25/19) ?Z95.2 - Presence of prosthetic heart valve (ICD-10) History of esophagogastroduodenoscopy (EGD) (10/28/09) ?Z98.890 - Other specified postprocedural states (ICD-10) History of arthroscopy of right knee (05/11/98) ?Z98.890 - Other specified postprocedural states (ICD-10) History of arthroscopy of right knee (07/11/97) ?Z98.890 - Other specified postprocedural states (ICD-10) H/O varicose vein stripping (12/2007) ?Z98.890 - Other specified postprocedural states (ICD-10) History of Carito fundoplication (01/28/10) ?Z98.890 - Other specified postprocedural states (ICD-10) History of excision of mass (01/28/10) ?Z98.890 - Other specified postprocedural states (ICD-10) Status post laparoscopic hernia repair (01/28/10) ?Z98.890 - Other specified postprocedural states (ICD-10) ?Z87.19 - Personal history of other diseases of the digestive system (ICD-10) History of laparoscopic cholecystectomy (01/28/10) ?Z90.49 - Acquired absence of other specified parts of digestive tract (ICD-10) Family History (Updated 12/07/22 @ 17:06 by Nazario Lopez MD) Mother Aortic valve replaced Father Emphysema lung Brother Kidney disease Social History (Updated 12/07/22 @ 17:06 by Nazario Lopez MD) Narrative: He is and lives in [place] with his Rosa. Rosa is healthcare power of putter in. He has 13 steps in his house to get from the up stairs to the downstairs. He does not need to climb stairs to live at home. He did well after hip surgery in August of 2022 in his home. Remote history of cigarette smoking. He does not drink alcohol. What is your current living situation?: I presently have a place to live Problems where you live: no known problems In the past 12 months, utilities in danger of being shut off: no In past 12 months, lack of transportation kept you from medical appts, meetings, work, or getting things needed for daily living: no In the past 12 mos, have been you worried that your food would run out before you had money to buy more?: never true In the past 12 mos, the food you bought just didn't last and you didn't have money to buy more?: never true Highest level of school completed/degree received: decline to answer Smoking Status: Former smoker What tobacco products do you use: pipe Do you use any of these nicotine containing products: None Second hand tobacco smoke exposure: No How often do you have a drink containing alcohol: never AUDIT-C Alcohol total score: 0 Non-prescribed substance use: denies use Caffeine: No How often does anyone, including family, friends and others, physically hurt you: never How often does anyone, including family, friends and others, insult or talk down to you: never How often does anyone, including family, friends and others, threaten you with harm: never How often does anyone, including family, friends and others, scream or curse at you: never service: Yes Meds Home Medications and Allergies Home Medications Medication Instructions Recorded Confirmed Type acetaminophen 500 mg tablet 1,000 mg PO Q6H PRN 08/12/22 12/07/22 History (Tylenol Extra Strength) amlodipine 5 mg tablet 5 mg PO DAILY 08/12/22 12/07/22 History aspirin 81 mg tablet,delayed 81 mg PO QDAY 08/12/22 12/07/22 History release atorvastatin 40 mg tablet 40 mg PO HS 08/12/22 12/07/22 History lansoprazole 30 mg capsule,delayed 30 mg PO BID 08/12/22 12/07/22 History release lisinopril 20 1 tab PO DAILY 08/12/22 12/07/22 History mg-hydrochlorothiazide 25 mg tablet paroxetine HCl 20 mg tablet 20 mg PO DAILY 08/12/22 12/07/22 History mirabegron 25 mg tablet,extended 25 mg PO DAILY 10/21/22 12/07/22 History release 24 hr (Myrbetriq) amoxicillin 500 mg capsule 2,000 mg PO ONCE 11/25/22 12/07/22 History celecoxib 200 mg capsule 200 mg PO DAILY 11/25/22 12/07/22 History clonazepam 0.5 mg tablet 0.5 - 1 mg PO BID PRN 11/25/22 12/07/22 History diclofenac sodium 1 % topical gel 2 g topical QID 11/25/22 12/07/22 History ferrous sulfate 325 mg (65 mg 325 mg PO Q OTHER DAY 11/25/22 12/07/22 History iron) tablet,delayed release oliogqidfkw-vyeqylaagzk-cy-mineral#3 1 tab PO DAILY 11/25/22 12/07/22 History 375 mg-300 mg-25 mg-0.5 mg tablet ivermectin 1 % topical cream 1 applic topical BID PRN 11/25/22 12/07/22 History metronidazole 0.75 % topical cream 1 applic topical BID 11/25/22 12/07/22 History multivitamin (Multiple Vitamins 1 tab PO DAILY 11/25/22 12/07/22 History tablet) nitroglycerin 2 % transdermal 0.5 inch transdermal Q6H PRN 11/25/22 12/07/22 History ointment (Nitro-Bid) Allergies Allergy/AdvReac Type Severity Reaction Status Date / Time No Known Drug Allergies Allergy Verified 10/21/22 10:44 Exam Narrative: Exam Narrative: He is alert and appears in no distress. Oropharynx is normal. Neck is supple without mass or adenopathy. Respirations are clear to auscultation. Cardiovascular: S1, S2, regular rate and rhythm. One to 2/6 systolic ejection murmur heard best at the right upper sternal border. No gallop or rub. Abdomen is soft without tenderness or mass. External genitalia normal. Extremities normal with intact pulses and sensation. No edema. Good strength in feet and ankles bilaterally. Const: Vital Signs, click to edit/add: Vital Signs - 24 hr 12/07/22 09:09 12/07/22 09:50 12/07/22 10:00 Temperature 98.2 F Pulse Rate 60 62 59 L Pulse Rate [Left P ulse Oximeter] Respiratory Rate 20 20 20 Blood Pressure 135/80 150/109 H 140/82 H Blood Pressure [Ri ght Arm] Pulse Oximetry 98 100 100 Oxygen Delivery Me thod Room Air Nasal Cannula Nasal Cannula Oxygen Flow Rate 3 3 12/07/22 12:14 12/07/22 12:20 12/07/22 12:25 Temperature 97.5 F L Pulse Rate 53 L 54 L 52 L Pulse Rate [Left P ulse Oximeter] Respiratory Rate 16 14 14 Blood Pressure 103/56 L 106/60 111/64 Blood Pressure [Ri ght Arm] Pulse Oximetry 97 95 98 Oxygen Delivery Me thod Room Air Oxygen Flow Rate 12/07/22 12:30 12/07/22 12:35 12/07/22 12:40 Temperature Pulse Rate 55 L 54 L 55 L Pulse Rate [Left P ulse Oximeter] Respiratory Rate 14 12 12 Blood Pressure 116/69 121/72 120/74 Blood Pressure [Ri ght Arm] Pulse Oximetry 96 94 94 Oxygen Delivery Me thod Oxygen Flow Rate 12/07/22 12:45 12/07/22 12:59 12/07/22 13:09 Temperature 97.1 F L 97.4 F L 97.4 F L Pulse Rate 53 L 56 L Pulse Rate [Left P ulse Oximeter] 53 L Respiratory Rate 12 16 18 Blood Pressure 121/77 Blood Pressure [Ri ght Arm] 128/76 128/77 Pulse Oximetry 98 97 Oxygen Delivery Me thod Room Air Room Air Room Air Oxygen Flow Rate 12/07/22 13:24 12/07/22 13:39 12/07/22 13:54 Temperature 97.5 F L 97.7 F 97.7 F Pulse Rate Pulse Rate [Left P ulse Oximeter] 59 L 61 60 Respiratory Rate 18 18 18 Blood Pressure Blood Pressure [Ri ght Arm] 141/84 H 154/82 H 157/74 H Pulse Oximetry 97 97 97 Oxygen Delivery Me thod Room Air Room Air Room Air Oxygen Flow Rate 3 12/07/22 14:24 12/07/22 14:54 10/25/23 15:54 Temperature 97.7 F 97.9 F 98.5 F Pulse Rate Pulse Rate [Left P ulse Oximeter] 62 62 67 Respiratory Rate 18 18 18 Blood Pressure Blood Pressure [Ri ght Arm] 152/79 H 168/106 H 182/103 H Pulse Oximetry 98 99 99 Oxygen Delivery Me thod Room Air Room Air Room Air Oxygen Flow Rate Documenting provider has reviewed patient's vital signs: yes Assessment and Plan Assessment and plan (1) Status post right hip replacement: Problem comment: Dr. Navarro, 09/07/2022 Status: Acute Assessment and Plan: Routine management with pain medication, physical therapy and VTE prophylaxis with aspirin (2) Anemia: Problem comment: He has a history of mild anemia. He had a normal hemoglobin earlier this year and then mild anemia after his hip surgery in August. Normal colonoscopy January 2022. Status: Acute Assessment and Plan: Check hemoglobin in the morning. Continue iron therapy at home (3) CKD stage G3a/A1, GFR 45-59 and albumin creatinine ratio <30 mg/g: Problem comment: Check creatinine in the morning. Resume blood pressure medications as blood pressure allows Status: Acute (4) Hypertension: Problem comment: Resume blood pressure medications as blood pressure requires Status: Acute Plan Anticipate uncomplicated recovery from surgery. Resume management of chronic medical problems. Can you outpatient management of chronic medical problems with primary care at discharge. Total time spent today is 55 minutes, 40 minutes in coordination of care and discussing with patient ongoing evaluation management of chronic medical problems, rehabilitation of knee surgery, management of blood pressure and urinary problems.
[2022-12-07] MEDS: OMEPRAZOLE 20 MG CAPSULE DR PO (17:25)
--- NOTE | 2022-12-07 17:53 | PC.NURSE ---
End of Shift: Patient pleasant and cooperative. Patient vitally stable, lungs clear, BS WNL, IV running LR at 75. Patient rates pain at most 3/10, patient has recieved Tylenol and 5 of oxy. Patient had one incontinence and 200cc in urinal at toilet. Patient and bid writer walked the rogers. Patient tolerating regular diet. Right knee dressing C/D/I, cryocuff applied.
[2022-12-07] MEDS: ASPIRIN 81 MG TABLET EC PO (20:54)
[2022-12-07] MEDS: SENNOSIDES 1 TAB TABLET 2 TAB PO (20:54)
[2022-12-07] MEDS: ATORVASTATIN CALCIUM 40 MG TABLET PO (20:54)
[2022-12-08] MEDS: CEFAZOLIN 2 GM in 0.9 % SODIUM CHLORIDE Mini-bag 100 ML IVPB ×2 (00:48→08:37)
[2022-12-08] MEDS: OXYCODONE 5 MG TABLET PO ×2 (01:07→07:48)
[2022-12-08 02:50] VITALS: BP 155/82; PULSE 76; RESP 18; TEMP 37.3; O2SAT 94
[2022-12-08] MEDS: ACETAMINOPHEN 500 MG TABLET 1000 MG PO ×2 (05:07→10:13)
--- NOTE | 2022-12-08 06:20 | PC.NURSE ---
Shift note: Pt is doing well ambulating with A1, walker and GB. Alert and oriented,and talkative. Pain rated at 3 and 4. 1 time Oxycodone was requested at 0100. Tolerated regular diet well without any abdominal symptoms. Vitally stable. Dressing appears clean and dry. Pt had hypoactive bowel sound. No BM or gas passed yet. Lungs sound clear. Pt could not get enough sleep.
[2022-12-08 06:30] LABS: Basophils Absolute Auto 0.01 K/uL (0.00-0.30); Basophils Percent Auto 0.1 % (0.0-3.0); Hematocrit 36.7 % (37.0-53.0); Hemoglobin* 11.8 gm/dL (13.5-17.5); Immature Granulocytes Abs Auto 0.01 K/uL (0.00-0.30); Immature Granulocytes Pct Auto 0.1 %; Lymphocytes Percent Auto 6.4 % (20-44); Mean Corpuscular HGB Conc 32 gm/dL (32-36); Mean Corpuscular Hemoglobin 30 pg (26-34); Mean Corpuscular Volume 93 fL (80-100); Monocytes Percent Auto 8.1 % (0.0-11.0); Neutrophils Percent Auto 85.3 % (42.0-72.0); Platelet Count* 137 K/uL (140-440); RDW Coefficient of Variation % 14.1 % (11.5-15.5); Red Blood Count 3.95 m/uL (4.30-5.90); White Blood Count* 10.53 K/uL (4.50-11.00)
[2022-12-08 06:33] LABS: Slide Review Reflex No
[2022-12-08 06:46] LABS: Sodium* 134 mmol/L (135-149)
[2022-12-08 06:49] LABS: Blood Urea Nitrogen* 17 mg/dL (7-30); Est. Creatinine Clearance* 73.29; Estimated Glomerular Filt Rate 80 ml/min
[2022-12-08 07:35] VITALS: BP 171/84; PULSE 63; RESP 16; TEMP 36.9; O2SAT 99
[2022-12-08] MEDS: OMEPRAZOLE 20 MG CAPSULE DR PO (07:49)
[2022-12-08] MEDS: AMLODIPINE 5 MG TABLET PO (08:34)
[2022-12-08] MEDS: ASPIRIN 81 MG TABLET EC PO (08:34)
[2022-12-08] MEDS: lisinopriL 20 MG TABLET PO (08:34)
[2022-12-08] MEDS: MULTIVITAMIN/MINERALS 1 TABLET 1 TAB PO (08:34)
[2022-12-08] MEDS: PARoxetine 20 MG TABLET PO (08:35)
[2022-12-08] MEDS: SENNOSIDES 1 TAB TABLET 2 TAB PO (08:35)
[2022-12-08] MEDS: FERROUS SULFATE 325 MG TABLET PO (08:35)
[2022-12-08] MEDS: hydroCHLOROthiazide 25 MG TABLET PO (08:35)
--- NOTE | 2022-12-08 10:06 | PC.SOCIAL ---
Discharge Planning: Met with patient and , Rosa in room. Patient and state that they are all set up at home for him to recuperate. , Rosa feels confident in taking care of him. He is anxious to go home today. Social work to follow up as needed.
--- NOTE | 2022-12-08 11:19 | PC.NURSE ---
Stephen by Dr. Chatman and Gray LOZOYA. Pt completed PT and OT post op sessions. Third antibiotic infused w/o difficulty. IV site discontinued. Pain 3-4 out of 10, managed with prn oxycodone and scheduled tylenol. Pt and Rosa verbalized understanding of d/c diagnosis, new prescriptions, home meds, f/up appt and sx to report urgently. Pt discharged via W/C with personal belongings with as transportation.
--- NOTE | 2022-12-08 12:19 | PM.ORPN ---
Subjective Subjective Date Seen: 12/08/22 Principal diagnosis: Status postop day 1 right total knee arthroplasty Interval history: Patient reports doing well. No acute events over night. Pain managed with scheduled and PRN medications, ice. DVT prophylaxis: 81 mg aspirin by mouth twice daily, bilateral knee high Baldev stockings, SCDs, walking. Denies fevers, chills, aches, N/V, CP, SOB/RUFF, or lightheadedness. He reports issues with constipation during his last hip arthroplasty. Reports some passing flatus this time. Ortho Exam Narrative Exam Narrative: -Patient appears comfortable; no apparent acute distress. He is working with physical therapy in the PT room -Alert and oriented times 3 -Operative knee mildly swollen; soft tissues supple; no ecchymosis; no erythematous streaking Warmth appropriate -Surgical dressing clean, dry, intact; no drainage -Bilateral calfs soft; no significant swelling, edema, tenderness, erythema, discoloration, warmth, or palpable cords -2+ DP/PT pulses, intact dermatomes and myotomes distally (5/5 strength) Const Vital Signs, click to edit/add: Vital Signs - 24 hr 12/07/22 12:20 12/07/22 12:25 12/07/22 12:30 Temperature Pulse Rate 54 L 52 L 55 L Pulse Rate [Left Pulse Oximeter] Respiratory Rate 14 14 14 Blood Pressure 106/60 111/64 116/69 Blood Pressure [Right Arm] Pulse Oximetry 95 98 96 Oxygen Delivery Method Oxygen Flow Rate 12/07/22 12:35 12/07/22 12:40 12/07/22 12:45 Temperature 97.1 F L Pulse Rate 54 L 55 L 53 L Pulse Rate [Left Pulse Oximeter] Respiratory Rate 12 12 12 Blood Pressure 121/72 120/74 121/77 Blood Pressure [Right Arm] Pulse Oximetry 94 94 98 Oxygen Delivery Method Room Air Oxygen Flow Rate 12/07/22 12:59 12/07/22 13:09 12/07/22 13:24 Temperature 97.4 F L 97.4 F L 97.5 F L Pulse Rate 56 L Pulse Rate [Left Pulse Oximeter] 53 L 59 L Respiratory Rate 16 18 18 Blood Pressure Blood Pressure [Right Arm] 128/76 128/77 141/84 H Pulse Oximetry 97 97 Oxygen Delivery Method Room Air Room Air Room Air Oxygen Flow Rate 3 12/07/22 13:39 12/07/22 13:54 12/07/22 14:24 Temperature 97.7 F 97.7 F 97.7 F Pulse Rate Pulse Rate [Left Pulse Oximeter] 61 60 62 Respiratory Rate 18 18 18 Blood Pressure Blood Pressure [Right Arm] 154/82 H 157/74 H 152/79 H Pulse Oximetry 97 97 98 Oxygen Delivery Method Room Air Room Air Room Air Oxygen Flow Rate 12/07/22 14:54 12/07/22 15:00 12/07/22 15:00 Temperature 97.9 F Pulse Rate Pulse Rate [Left Pulse Oximeter] 62 Respiratory Rate 18 18 Blood Pressure Blood Pressure [Right Arm] 168/106 H Pulse Oximetry 99 97 Oxygen Delivery Method Room Air Oxygen Flow Rate 12/07/22 15:54 12/07/22 15:54 12/07/22 16:54 Temperature 98.5 F 98.1 F 98.5 F Pulse Rate Pulse Rate [Left Pulse Oximeter] 67 67 67 Respiratory Rate 18 18 18 Blood Pressure Blood Pressure [Right Arm] 182/103 H 188/99 H 188/99 H Pulse Oximetry 99 98 98 Oxygen Delivery Method Room Air Room Air Room Air Oxygen Flow Rate 12/07/22 17:54 12/07/22 18:55 12/07/22 19:00 Temperature 98.5 F 98.8 F 98.4 F Pulse Rate Pulse Rate [Left Pulse Oximeter] 67 65 71 Respiratory Rate 18 18 18 Blood Pressure Blood Pressure [Right Arm] 180/97 H 167/93 H 174/91 H Pulse Oximetry 99 98 96 Oxygen Delivery Method Room Air Room Air Room Air Oxygen Flow Rate 12/07/22 22:45 12/08/22 02:50 12/08/22 07:35 Temperature 99.1 F Pulse Rate Pulse Rate [Left Pulse Oximeter] 76 Respiratory Rate 18 Blood Pressure Blood Pressure [Right Arm] 155/82 H Pulse Oximetry 96 94 99 Oxygen Delivery Method Room Air Oxygen Flow Rate 12/08/22 07:35 Temperature 98.4 F Pulse Rate Pulse Rate [Left Pulse Oximeter] 63 Respiratory Rate 16 Blood Pressure Blood Pressure [Right Arm] 171/84 H Pulse Oximetry 99 Oxygen Delivery Method Room Air Oxygen Flow Rate Assessment and Plan Assessment and plan (1) Status post right hip replacement: Problem details: Dr. Navarro, 09/07/2022 Status: Acute (2) Anemia: Problem details: He has a history of mild anemia. He had a normal hemoglobin earlier this year and then mild anemia after his hip surgery in August. Normal colonoscopy January 2022. Status: Acute (3) CKD stage G3a/A1, GFR 45-59 and albumin creatinine ratio <30 mg/g: Problem details: Check creatinine in the morning. Resume blood pressure medications as blood pressure allows Status: Acute (4) Hypertension: Problem details: Resume blood pressure medications as blood pressure requires Status: Acute Plan - Complete 23 hour perioperative antibiotics. - PT/OT consult for education and assistance. - Social work consult for discharge planning - Prescribed analgesics as needed - DVT prophylaxis: 81 mg aspirin by mouth twice daily, bilateral knee high Baldev Hose stockings and SCDs - Anticipation is for discharge to home with spouse 12/08/2022 if the patient remains medically stable, pain is controlled, and they are safe with mobilization. - Encouraged 1-4 tablets of senna twice daily as needed for constipation; consume pears, peaches, prunes, and frequent water intake.
== END 2022-12-08 11:18 | disposition home or self-care (01) ==
LOC: OR 08:23 → MEDSURG 08:26
PROVIDERS: PCP Internal Medicine; Visit Provider Orthopaedic Surgery Sports Medicine
PROC: (CPT 27447; principal; 2022-12-07 10:15)
DX: M17.11 Unilateral primary osteoarthritis, right knee (principal); G89.18 Other acute postprocedural pain; D64.9 Anemia, unspecified; Z96.641 Presence of right artificial hip joint; I12.9 Hypertensive chronic kidney disease with stage 1 through stage 4 chronic kidney disease, or unspecified chronic kidney disease; N18.31 Chronic kidney disease, stage 3a; R35.0 Frequency of micturition; Z85.46 Personal history of malignant neoplasm of prostate
CPT/HCPCS: 27447; 01402; 36415; 64447; 64454; 73560; 76942; 82565; 84132; 84295; 84520; 85025; 97110; 97161; 97165; 97535; 99100; A9153; A9270; C1776; J0690; J1100; J2250; J2405; J2704; J3010; J7120

== ENCOUNTER 2024-02-27 14:35 | Outpatient (RCR) | payer MEDICARE, BC, SELFPAY | END 2024-03-15 16:16 | disposition home or self-care (01) | PROVIDERS: PCP Internal Medicine; Visit Provider Orthopaedic Surgery Sports Medicine | DX: M16.12 Unilateral primary osteoarthritis, left hip (principal); Z96.642 Presence of left artificial hip joint; M25.552 Pain in left hip; M25.562 Pain in left knee; M25.652 Stiffness of left hip, not elsewhere classified; M25.662 Stiffness of left knee, not elsewhere classified; Z51.89 Encounter for other specified aftercare | CPT/HCPCS: 97110; 97112; 97161 ==

== ENCOUNTER 2024-04-03 08:20 | Day surgery (SDC) | payer MEDICARE, BC, SELFPAY ==
[2024-04-03] VITALS (24 sets, daily range): BP systolic 106–172; BP diastolic 63–93; PULSE 51–75; RESP 13–16; TEMP 36.2–37.4; O2SAT 96–100; BMI 31.2
--- OUTSIDE RECORDS SUMMARY | 2024-04-03 08:24 | XMS_ITS | Data Portability ---
Author Organization [place] [facility] Address [address] [place] [address] Care Team Providers Care Rug Cleaner Name Role Phone DIANA MARTINEZ Primary Care Provider Assessment Encounter Date Assessment Date Assessment LastModified by Organization Details LastModified Time 12/14/2021 12/14/2021 71 year old male who is s/p radical prostatectomy for delano 7 prostate cancer on 11/19/[address] Ga. Seen in the [facility] tanisha Not available 12/14/2021 12:52:51 Plan of Treatment Reminders Order Date Submit Date Provider Last Modified By Organization Details Last Modified Time Details Appointments None recorded. Lab None recorded. Referral None recorded. Procedures None recorded. Surgeries None recorded. Imaging None recorded. Medication Orders oxybutynin chloride 5 mg tablet 2021 022 [id number], [address] [place], [place], [phone], 14:40:39 Patient TargetsNo targets recorded. Patient Instructions Encounter Date Encounter Id Patient Instructions Last Modified By Organization Details Last Modified Time 12/14/2021 [id number] Hx of prostate cancer: - Plan to follow-up with Demetrio Le PA-C in early January and will see Dr. Ga in late January with a PSA prior tanisha Not available 12/14/2021 12:56:18 01/19/2022 [id number] 71 y/o male presents for a BARRETT evaluation Urinary incontinence/noc turia - Continue kegel exercises daily. Good recovery thus far. Trial of oxybutynin 5 mg prior to bed. Monitor for dry eyes/mouth, urinary retention, and cognitive dysfunction. Stop all fluids 2-3 hours prior to bed. Limit bladder irritant intake such as carbonation, caffeine, alcohol and spicy foods in the evening/night. ED - Educated on BARRETT protocol such as consistent usage of PDE-5 inhibitors (Viagra or Cialis) and FOUZIA. He is not interested in the BARRETT protocol. [email or web address] Not available 01/19/2022 15:25:13 Reason for Referral None Reported. Results Created Date Observation Date Name Description Value Unit Range Abnormal Flag Note LastModifiedBy Organization Detail LastModifiedTime Result Notes None recorded. Procedures Surgical History Date Name Laterality Status Provider Name and Address Organization Details Recorded Time 11/30/19 22 Catheter Removal completed [facility] 11/29/2021 09:50:36 03/16/19 19 Diagnostic colonoscopy completed Not Available Health Note 01/17/2022 16:46:29 Removal of prostate completed Not Available Health Note 01/17/2022 16:46:29 Prostatectomy (turp) completed Not Available Health Note 01/17/2022 16:46:29 Imaging Results None recorded. Procedure Notes None recorded. Medical Equipment None Reported. Allergies No known drug allergies Medications Name Sig Start Date Stop Date Status Note LastModified by Organization Details LastModified Time enema ready-to-us e 133ml INSERT 133 ML RECTALLY ONE TIME FOR 1 DOSE. TAKE MORNING OF BIOPSY active Not Available Not Available No t Available celecoxib 200 mg capsule TAKE 1 CAPSULE BY MOUTH EVERY DAY WITH A MEAL active Not Available Not Available No t Available amoxicillin 500 mg capsule TAKE 4 CAPSULES BY MOUTH 1 HOUR BEFORE DENTAL WORK active Not Available Not Available No t Available atorvastati n 40 mg tablet active Not Available Not Available Not Available clonazepam 0.5 mg tablet 01/19 completed Not Available Not Available Not Available amlodipine 5 mg tablet active Not Available Not Available Not Available tamsulosin 0.4 mg capsule 01/19 completed Not Available Not Available Not Available paroxetine 20 mg tablet active Not Available Not Available Not Available lansoprazol e 30 mg capsule,del ayed release active Not Available Not Available Not Available lisinopril 20 mg-hydrochl orothiazide 25 mg tablet TAKE 1 TABLET BY MOUTH EVERY DAY active Not Available Not Available No t Available levofloxaci n 500 mg tablet TAKE 1 TABLET BY MOUTH ONCE DAILY FOR 1 DAY 01/19 completed Not Available Not Available Not Available oxybutynin chloride 5 mg tablet TAKE 1 TABLET BY MOUTH PRIOR TO BEDTIME active Not Available Not Available No t Available GaviLyte-G 236 gram-22.74 gram-6.74 gram-5.86 gram oral solution active Not Available Not Available Not Available Vitals Date Recorded Body height Body mass index (BMI) Body weight Provider Name and Address Organization Details Last Updated DateTime 12/14/2021 185.42 cm 30.1 kg/m2 332599.06 g Brenda [place] [facility] 12/14/2021 12:30:34 Date Recorded Body mass index (BMI) Body weight Body height Provider Name and Address Organization Details Last Updated DateTime 01/19/2022 31 kg/m2 445428.7238 47933 g 185.42 cm Not Available Health Note 01/19/2022 14:22:58 Social History Question Answer Notes LastModified by Organizat ion Details LastModified Time Tobacco Smoking Status Never Smoker Not Available Health Note 01/17/2022 16:46:31 What Is Your Level Of Alcohol Consumption? NONE [email or web address] Information not available 01/17/2022 What Is Your Level Of Caffeine Consumption? Heavy [email or web address] Information not available 01/17/2022 How Much Tobacco Do You Chew? None [email or web address] Information not available 01/17/2022 Do You Or Have You Ever Used E-cigarettes Or Vape? Never Used Electronic Cigarettes [email or web address] Information not available 01/17/2022 When Did You Quit Smoking? 16+yearssinmaggie bruce Information not available 12/14/2021 Race Information no t available 01/19/2022 Ethnicity Not /Latin o Information not available 01/19/2022 Preferred Language Bolivian Information not available 01/19/2022 Recreational Drug Use No Information not available 01/19/2022 What Was The Date Of Your Most Recent Tobacco Screening? 01/19/2022 [email or web address] Information not available 01/17/2022 Are You Sexually Active? No Information not available 01/19/2022 Do You Or Have You Ever Used Smokeless Tobacco? Never Used Smokeless Tobacco [email or web address] Information not available 01/17/2022 Do You Use Any Illicit Or Recreational Drugs? No [email or web address] Information not available 01/17/2022 Has Tobacco Cessation Counseling Been Provided? No Information not available 01/19/2022 Do You Or Have You Ever Used Any Other Forms Of Tobacco Or Nicotine? No Information not available 01/19/2022 Sex: Unknown Functional Status None recorded. Mental Status None recorded. Family History Nothing Reported. Medical History Condition Response High Blood Pressure N Kidney Stones N Depression N Lung Disease N GERD/Acid Reflux N Sexually Transmitted Infection N Cancer Y High Cholesterol N Diabetes N Bleeding Disorder N Heart Disease Y Immunizations Vaccine Type Date Status Note Provider Nam e and Address Organization Details Recorded Time SARS-COV-2 (COVID-19) vaccine, UNSPECIFIED completed Not Available Health Note 01/17/2022 16:46:35 Past Encounters Encounter ID Performer Location Encounter Start Date Encounter Closed Date Diagnosis/Indication Diagnosis SNOMED-CT Code Diagnosis ICD10 Code Diagnosis Note [id number] Samreen Pacheco [facility] [address] [address] 11/29/2021 09:05:45 11/29/2021 10:58:26 Malignant tumor of prostate 958482850 C61 [id number] DARELL Wang [facility] [address] [facility] e [address] [place] [phone] 12/14/2021 12:24:52 12/14/2021 13:08:43 Malignant tumor of prostate [id number] C61 [id number] [place] KEE [facility] [address] [address] 01/19/2022 14:21:58 01/19/2022 16:04:56 Nocturia 948202573 R35.1 Male urina ry stress incontinence 445701130 N39.3 Erectile d ysfunction following radical prostatectomy 7342784638 04788 N52.31 Health Concerns Section Related Observation LastModified by Organization Detai ls LastModified Time None Recorded Concern Status LastModified by Organization Details LastModified Time None Recorded Advance Directives Directive None Recorded Payers Encounter Date Sequence Insurance Name Policy Number Policy Levin Covered Member ID Levin Member ID Guarantor Name 11/29/2021 1 [place]) [id number] Calixto Kiser [id number] Cal[employer] Kiser 12/14/2021 1 [place] [id number] Calixto Kiser [id number] Calixto Kiser 01/19/2022 1 [place] [id number] Calixto Kiser [id number] Calixto Kiser Notes Date Note Type Note Provider Name and Address Organization Details Recorded Time 2 text/html 71 year old male who is s/p radical prostatectomy for delano 7 prostate cancer on 11/19/[address] Ga. Seen in the [facility] Pathology: [id number]) PROSTATE AND SEMINAL VESICLES, ROBOTIC RADICAL PROSTATECTOMY:1. Prostatic adenocarcinoma, [place]'s grade 3+4 (7/10), ISUP Grade Group 22. Extraprostatic extension by tumor is present at the left anterior prostate3. Tumor involves muscle fibers of the bladder neck4. The surgical margins are negative for tumor5. Negative for lymphatic/vascular invasion by tumor6. Background prostate with nodular hyperplasia States he has been feeling well since surgery. No major complaintsUsing two pads per day DARELL Martinez [address] [place] [address],[facility] [address], [address], [facility] 12/14/2021 12:56:37 2 text/html Erectile DysfunctionReported bypatient.Notes:Patient presents for a BARRETT evaluation. He has not attempted sexual activity/stimulation for the past 10 years. He was unsure of his exact erectile function leading into surgery.Since surgery, he has not attempted stimulation. He is not interested in the BARRETT recovery.IncontinenceRep orted bypatient.Notes:No issues with urinary incontinence prior to surgery.Currently, he reports urinary incontinence with standing up and sudden movements. He is wearing approximately 1 pad a day. He is completing kegel exercises daily. He is waking up to 4-6x a night which is similar to baseline nocturia. He is quite bothered by the nocturia. RRP completed on 11/19/[address] Ga. Bilateral nerve sparing DEMETRIO LE, PAC [address] [facility] [address], [place], [address], [facility] 01/19/2022 15:29:48
[2024-04-03] MEDS: SODIUM CHLORIDE 0.9 % (FLUSH) 10 ML SYRINGE IVF (08:53)
[2024-04-03] MEDS: LACTATED RINGERS 1000 ML 1,000 ML 100 ML IV ×2 (08:53→14:48)
[2024-04-03] MEDS: OXYCODONE (CR) 10 MG TAB.ER.12H PO (08:53)
[2024-04-03] MEDS: ACETAMINOPHEN 500 MG TABLET 1000 MG PO ×2 (08:53→18:18)
--- NOTE | 2024-04-03 10:45 | CRLHL7_ITS ---
For Patients: As a result of the Century Cures Act, medical imaging exams and procedure reports are released immediately into your electronic medical record. You may view this report before your referring provider. If you have questions, please contact your health care provider. INDICATION : Intraoperative exam TECHNIQUE : Intraoperative image of the left hip FINDINGS : 29.1 seconds of fluoroscopy IMPRESSION : Intraoperative imaging left hip with C-arm, please refer to operative report Dictated by Candido Sosa MD @ 04/04/2024 4:14:03 PM (Electronically Signed)
[2024-04-03] MEDS: MIDAZOLAM HCL 1 MG/ML inj IVP (11:03)
[2024-04-03] MEDS: fentaNYL 100 MCG/2 ML inj IVP (11:03)
--- NOTE | 2024-04-03 11:37 | SUR.PREOP ---
TIME?OUT:?1103 PT/RN/MDA?VERIFICATION?OF?SURGICAL?SITE,?PROCEDURE,?AND?CONSENT OBTAINED?PRIOR?TO?INVASIVE?PROCEDURE.
--- NOTE | 2024-04-03 12:13 | P.ANES_ITS ---
Anesthesia Charges Start Date/Time Anesthesia Start Date: 04/03/24 Anesthesia Start Time: 12:43 Stop Date/Time Anesthesia Stop Date: 04/03/24 Anesthesia Stop Time: 15:50 Summary Extremes of Age - Over 70 or under 1: MDA Coding CPT Codes CPT Codes: ANESTH HIP ARTHROPLASTY - 45637 ([id number]) P3 - PATIENT W/SEVERE SYS DISEASE, QK - JUNIOR COPYWRITER 2-4 CNCRNT ANES PROC, QX - HANDKERCHIEF PRESSER SVC W/ MD MED DIRECTION Additional Codes: Summary - Extremes of Age - Over 70 or under 1: MDA ([id number])
--- NOTE | 2024-04-03 12:13 | W.PM.NB ---
Nerve Block Nerve Block Time Seen by Provider: 11:05 Date Seen: 04/03/24 Type of block requested by surgeon for post-operative analgesia: PRISCILA/LFCN Side: left Time out performed: Yes Verification of patient name: Yes Verification of date of : Yes Site marking: site marked Name of person performing procedure: Felix Continuous monitoring Was continuous monitoring of O2 sat, B/P, instrument maker and repairer, recorded every 15 minutes?: Yes Procedure Checklist: sterile prep, needles and gloves Ultrasound guided. Images saved: Yes Medications given in 5ml increments after negative aspiration: Ropivicaine %: 0.5 mL: 30 Needle gauge: 20 Precedex (mcg): 25 Patient tolerated procedure well: Yes Additional comments: Needle noted below psoas tendon needle noted adjacent to LFCN Block Charges Block Charge (with Pro Fee): Other Periph Nerve Block Use of Ultrasound Machine for Block: Yes- US Guidance/pain block
--- NOTE | 2024-04-03 12:13 | W.ANESCHARGE ---
Anesthesia Charges Start Date/Time Anesthesia Start Date: 04/03/24 Anesthesia Start Time: 12:43 Stop Date/Time Anesthesia Stop Date: 04/03/24 Anesthesia Stop Time: 15:50 Summary Extremes of Age - Over 70 or under 1: MDA Coding CPT Codes CPT Codes: ANESTH HIP ARTHROPLASTY - 22941 ([id number]) P3 - PATIENT W/SEVERE SYS DISEASE, QK - BAG BLEACHER 2-4 CNCRNT ANES PROC, QX - FENDER MECHANIC APPRENTICE SVC W/ MD MED DIRECTION Additional Codes: Summary - Extremes of Age - Over 70 or under 1: MDA ([id number])
[2024-04-03] MEDS: CEFAZOLIN 2 GM in 0.9 % SODIUM CHLORIDE Mini-bag 100 ML IVPB ×2 (12:58→18:19)
[2024-04-03] MEDS: TRANEXAMIC ACID 100 MG/ML INJ 1000 MG IV (13:04)
--- NOTE | 2024-04-03 13:17 | W.PM.H&PU ---
History & Physical Update History & Physical Update H&P Reviewed and patient assessed: No changes noted
--- NOTE | 2024-04-03 15:00 | PM.ORPRC ---
Procedure Note Date of procedure: 04/03/24 Procedure: PREOPERATIVE DIAGNOSIS: 1. Left hip osteoarthritis, severe, primary POSTOPERATIVE DIAGNOSIS: 1. Left hip osteoarthritis, severe, primary PROCEDURE: 1. Left total hip arthroplasty-anterior approach 2. 74022 - intraoperative fluoroscopy up to 1 hour. SURGEON: Garret Navarro MD. DIAGNOSTIC RADIOLOGIST: Gray Chávez PA-C; ROJELIO Payne - Of note, a skilled call center assistant was critical for this case to aid in patient positioning, tissue retraction, limb manipulation/positioning, dislocation/relocation, patient safety, and closure. ANESTHESIA: General endotracheal anesthetic EBL: 400 mL IMPLANTS: DePuy J&J uncemented total hip [place] cup size 58, hole eliminator, +4 neutral liner Actis stem, standard offset, size 9 +1.5 mm ceramic 36 mm head. COMPLICATIONS: None evident INDICATIONS: The patient is a pleasant 73-year-old male who has experienced severe left hip pain and difficulty bearing weight. Workup included x-rays which revealed severe osteoarthrosis in the hip. Given the deformity, the dysfunction, and the pain, as well as the failure of nonoperative management, recommendation was made for surgery. FINDINGS: Full-thickness chondral loss 6 stents of lead throughout the femoral head and acetabulum. Flattening to the femoral head. Osteophytosis around the femoral head/neck junction and perimeter of the acetabulum. Cysts within the acetabulum the largest measuring approximately 12 mm in diameter. DESCRIPTION OF PROCEDURE: Following a thorough discussion of risks, benefits, and alternatives consent was obtained and the left hip was marked. The patient was brought to the operating room and placed supine on the operating table. Induction of anesthesia was undertaken. 2 g IV Ancef and 1 g tranexamic acid was administered within 1 hr of incision preoperatively. Proper time-out was performed identifying proper patient, site, procedure. The operative extremity was prepped and draped in the appropriate sterile fashion using ChloraPrep after the patient was positioned on the Excello table with head in neutral alignment and all bony prominences well padded. C-arm fluoroscopic imaging was utilized to confirm proper pelvis rotation and position, and to get true AP films of both the contralateral left, and the affected left hip. This is for comparison. A longitudinal incision was made starting approximately 1 cm distal to the ASIS, and 3-4 cm lateral. The incision was extended distally aiming toward the lateral border the patella. Sharp incision through skin and bovie cautery through the subcutaneous tissue allowed identification of the TFL fascia. This was sharply divided, and the fascia bluntly released from the muscle fibers as we dissected medial. Upon coming to the medial border, we were able to retract the TFL laterally, and penetrated the deeper fascia and identify the crossing circumflex vessels. These were ligated/cauterized. The rectus was elevated from the capsule, and retractors placed laterally and medially along the femoral neck to help with visualization of the capsule. We then performed an inverted T capsulotomy. The capsule was tagged for later repair. Retractors were placed inside the capsule. The femoral neck was visualized after releasing medially down to the lesser trochanter, along the saddle laterally, and up onto the acetabulum. The femoral neck cut was made in line with our preoperative templating. The head was removed in a single piece, and sized. We turned our attention to acetabular preparation. Initially, the labrum was resected from around the perimeter, the pulvinar was excised, allowing us to visualize the false wall. We started the reaming with a 43 mm reamer. This was medialized down to the true wall. We then enlarged our reamers sequentially up to one size less than the selected cup size. We trialed at the same size and found it to have an excellent fit. The selected cup was then opened, inserted, and impacted in line with the goal of 40-45? of abduction, and 20-25? of anteversion. This was confirmed on C-arm fluoroscopic imaging to be in the appropriate/goal position. Once the cup was placed we placed a hole eliminator and a liner consistent with preop planning. Attention was turned to the femoral preparation. The limb was extended, externally rotated, and adducted. The posteromedial capsule was released, as retractors were placed allowing excellent access to the proximal femur. Initially a boxcar weigher was followed by canal finder followed by various broaches. We broached sequentially up to size noted above, found it to have excellent rotational control, and trialing various heads and necks, revealed that appropriate neck offset, and the above noted head size provided the greatest stability, and nondenominational of length, and offset. C-arm fluoroscopic imaging confirmed position of the stem, as well as leg lengths, which were compared with the pre procedure all fluoroscopic images. Trial implants were removed, the real femoral stem inserted, as was the ceramic head. After reducing, the leg was placed through range of motion and stability was confirmed anterior, posterior, and lateral. A 3 min Betadine soak was then performed, and thorough irrigation with normal saline followed. Closure of the capsule was performed with #1 PDS. Bleeding was confirmed to be controlled at this stage, and the TFL fascia was closed with #0 strata fix. Subcutaneous, and subcuticular closure was performed with 2-0 Vicryl and 4-0 Monocryl, respectively. Dressings were applied, and the patient was awoken from anesthesia and transferred the PACU in stable condition. A skilled call center assistant was critical for this case to aid in patient positioning, tissue retraction, proximal femur exposure, limb manipulation/positioning, dislocation/relocation, patient safety, and closure. PLAN: 1. Weight bear as tolerated operative extremity. 2. 23 hr perioperative antibiotics. 3. Ice. 4. PT/OT consults for ambulation assistance/mobility education. 5. Social work consult for discharge planning. 6. DVT prophylaxis with at SCDs and Xarelto x5 days followed by aspirin for a total of 1 month..
--- NOTE | 2024-04-03 15:49 | P.ANES_ITS ---
Anesthesia Charges Start Date/Time Anesthesia Start Date: 04/03/24 Anesthesia Start Time: 12:43 Stop Date/Time Anesthesia Stop Date: 04/03/24 Anesthesia Stop Time: 13:50 Coding CPT Codes CPT Codes: ANESTH HIP ARTHROPLASTY - 64334 ([id number]) P3 - PATIENT W/SEVERE SYS DISEASE, QK - FEDERAL AGENT 2-4 CNCRNT ANES PROC, QX - COMMERCIAL CREDIT OFFICER SVC W/ MD MED DIRECTION
--- NOTE | 2024-04-03 15:49 | W.ANESCHARGE ---
Anesthesia Charges Start Date/Time Anesthesia Start Date: 04/03/24 Anesthesia Start Time: 12:43 Stop Date/Time Anesthesia Stop Date: 04/03/24 Anesthesia Stop Time: 13:50 Coding CPT Codes CPT Codes: ANESTH HIP ARTHROPLASTY - 92863 ([id number]) P3 - PATIENT W/SEVERE SYS DISEASE, QK - AGGREGATE CONVEYOR OPERATOR 2-4 CNCRNT ANES PROC, QX - REFUGE WORKER SVC W/ MD MED DIRECTION
--- NOTE | 2024-04-03 16:31 | P.ANES_ITS ---
Anesthesia Charges Start Date/Time Anesthesia Start Date: 04/03/24 Anesthesia Start Time: 12:43 Stop Date/Time Anesthesia Stop Date: 04/03/24 Anesthesia Stop Time: 15:50 Coding CPT Codes CPT Codes: ANESTH HIP ARTHROPLASTY - 78854 ([id number]) P3 - PATIENT W/SEVERE SYS DISEASE, QK - BACTERIOLOGY PROFESSOR 2-4 CNCRNT ANES PROC, QX - COURT STENOGRAPHER SVC W/ MD MED DIRECTION
--- NOTE | 2024-04-03 16:31 | W.ANESCHARGE ---
Anesthesia Charges Start Date/Time Anesthesia Start Date: 04/03/24 Anesthesia Start Time: 12:43 Stop Date/Time Anesthesia Stop Date: 04/03/24 Anesthesia Stop Time: 15:50 Coding CPT Codes CPT Codes: ANESTH HIP ARTHROPLASTY - 57123 ([id number]) P3 - PATIENT W/SEVERE SYS DISEASE, QK - TAMPING MACHINE OPERATOR 2-4 CNCRNT ANES PROC, QX - SUPERVISOR ROAD ADMINISTRATOR SVC W/ MD MED DIRECTION
[2024-04-03] MEDS: LACTATED RINGERS 1000 ML 1,000 ML 75 ML IV (18:20)
--- NOTE | 2024-04-03 19:50 | PM.IMCN1 ---
Date of Consult Consult date: 04/03/24 Primary Care Provider: Sanna Gaitan MD Consult Narrative Reason for consult: Medical management of comorbidities Narrative: Calixto Kiser is a 73 year old male who presented to the hospital today for an elective L JOANIE with Dr. Navarro of Orthopedic surgery. There were no surgical or anesthetic complications noted during procedure. Since being back in his room postoperatively, he has eaten without nausea and is overall feeling great. Patient's H&P reviewed, PCP is Dr. Gaitan in [place]. Past medical history significant for: Prostate cancer, CAD, GERD, hypertension, anxiety, CKD, aortic stenosis, mitral stenosis. Has had previous joint replacements, prostatectomy, aortic valve replacement and CABG in 2019, subsequent wire removal from aortic valve replacement in December of 2023. History of blood clots: No Postoperative plan: Home with . Review of Systems Status of ROS: Reports: 10 or more systems reviewed and unremarkable except as noted in History and below [facility] Medical History (Updated 04/03/24 @ 20:43 by Madison Bautista MD) Mitral stenosis ?I05.0 - Rheumatic mitral stenosis (ICD-10) Osteoarthritis of left hip ?M16.12 - Unilateral primary osteoarthritis, left hip (ICD-10) Pericardial hematoma ?I31.2 - Hemopericardium, not elsewhere classified (ICD-10) Prostate cancer ?C61 - Malignant neoplasm of prostate (ICD-10) Severe aortic stenosis ?I35.0 - Nonrheumatic aortic (valve) stenosis (ICD-10) Generalized anxiety disorder ?F41.1 - Generalized anxiety disorder (ICD-10) 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 (ICD-10) Delayed emergence from anesthesia ?T88.59XA - Other complications of anesthesia, initial encounter (ICD-10) Chronic pain of both knees ?M25.561 - Pain in right knee (ICD-10) ?M25.562 - Pain in left knee (ICD-10) ?G89.29 - Other chronic pain (ICD-10) Barretts esophagus ?K22.70 - Perales's esophagus without dysplasia (ICD-10) Aortic stenosis ?I35.0 - Nonrheumatic aortic (valve) stenosis (ICD-10) Anemia ?D64.9 - Anemia, unspecified (ICD-10) Raynauds disease ?I73.00 - Raynaud's syndrome without gangrene (ICD-10) Hypertension ?I10 - Essential (primary) hypertension (ICD-10) Thrombocytopenia ?D69.6 - Thrombocytopenia, unspecified (ICD-10) CKD stage G3a/A1, GFR 45-59 and albumin creatinine ratio <30 mg/g ?N18.31 - Chronic kidney disease, stage 3a (ICD-10) CAD (coronary artery disease) ?I25.10 - Atherosclerotic heart disease of [place] coronary artery without angina pectoris (ICD-10) GERD (gastroesophageal reflux disease) ?K21.9 - Gastro-esophageal reflux disease without esophagitis (ICD-10) Raynaud phenomenon ?I73.00 - Raynaud's syndrome without gangrene (ICD-10) Osteoarthritis of hips, bilateral ?M16.0 - Bilateral primary osteoarthritis of hip (ICD-10) Osteoarthritis of knees, bilateral ?M17.0 - Bilateral primary osteoarthritis of knee (ICD-10) Surgical History (Updated 04/03/24 @ 20:40 by Madison Bautista MD) History of left hip replacement ?Z96.642 - Presence of left artificial hip joint (ICD-10) Status post right knee replacement (12/07/22) ?Z96.651 - Presence of right artificial knee joint (ICD-10) History of robot-assisted laparoscopic radical prostatectomy ?Z90.79 - Acquired absence of other genital organ(s) (ICD-10) Status post right hip replacement (09/07/22) ?Z96.641 - Presence of right artificial hip joint (ICD-10) S/P CABG x 1 ?Z95.1 - Presence of aortocoronary bypass graft (ICD-10) H/O prostate biopsy ?Z98.890 - Other specified postprocedural states (ICD-10) Aortic valve replaced (07/25/19) ?Z95.2 - Presence of prosthetic heart valve (ICD-10) History of esophagogastroduodenoscopy (EGD) (10/28/09) ?Z98.890 - Other specified postprocedural states (ICD-10) History of arthroscopy of right knee (05/11/98) ?Z98.890 - Other specified postprocedural states (ICD-10) History of arthroscopy of right knee (07/11/97) ?Z98.890 - Other specified postprocedural states (ICD-10) H/O varicose vein stripping (12/2007) ?Z98.890 - Other specified postprocedural states (ICD-10) History of Carito fundoplication (01/28/10) ?Z98.890 - Other specified postprocedural states (ICD-10) History of excision of mass (01/28/10) ?Z98.890 - Other specified postprocedural states (ICD-10) Status post laparoscopic hernia repair (01/28/10) ?Z98.890 - Other specified postprocedural states (ICD-10) ?Z87.19 - Personal history of other diseases of the digestive system (ICD-10) History of laparoscopic cholecystectomy (01/28/10) ?Z90.49 - Acquired absence of other specified parts of digestive tract (ICD-10) Family History Mother Aortic valve replaced Father Emphysema lung Brother Kidney disease Social History (Updated 02/20/24 @ 13:28 by Sima Anderson ~ REHABILITATION SERVICES DIRECTOR, REHABILITATION SERVICES DIRECTOR) Narrative: He is and lives in [place] with his Rosa. Rosa is healthcare power of estate planning attorney. He has 13 steps in his house to get from the up stairs to the downstairs. He does not need to climb stairs to live at home. He did well after hip surgery in August of 2022 in his home. Remote history of pipe smoking. He does not drink alcohol. What is your current living situation?: I presently have a place to live Problems where you live: no known problems In the past 12 months, utilities in danger of being shut off: no In past 12 months, lack of transportation kept you from medical appts, meetings, work, or getting things needed for daily living: no In the past 12 mos, have been you worried that your food would run out before you had money to buy more?: never true In the past 12 mos, the food you bought just didn't last and you didn't have money to buy more?: never true Highest level of school completed/degree received: decline to answer Smoking Status: Never smoker Do you use any of these nicotine containing products: None Second hand tobacco smoke exposure: No How often do you have a drink containing alcohol: never AUDIT-C Alcohol total score: 0 Non-prescribed substance use: denies use Caffeine: Yes How often does anyone, including family, friends and others, physically hurt you: never How often does anyone, including family, friends and others, insult or talk down to you: never How often does anyone, including family, friends and others, threaten you with harm: never How often does anyone, including family, friends and others, scream or curse at you: never service: Yes Meds Home Medications and Allergies Home Medications ?Medication ?Instructions ?Recorded ?Confirmed ?Type amlodipine 5 mg tablet 5 mg PO DAILY 08/12/22 04/03/24 History aspirin 81 mg tablet,delayed 81 mg PO QDAY 08/12/22 04/03/24 History release atorvastatin 40 mg tablet 40 mg PO HS 08/12/22 04/03/24 History lansoprazole 30 mg capsule,delayed 30 mg PO BID 08/12/22 04/03/24 History release lisinopril 20 1 tab PO DAILY 08/12/22 04/03/24 History mg-hydrochlorothiazide 25 mg tablet paroxetine HCl 20 mg tablet 20 mg PO DAILY 08/12/22 04/03/24 History amoxicillin 500 mg capsule 2,000 mg PO ONCE 11/25/22 04/03/24 History celecoxib 200 mg capsule 200 mg PO DAILY 11/25/22 04/03/24 History diclofenac sodium 1 % topical gel 2 g topical QID 11/25/22 04/03/24 History zjlpjehaysq-mgomqypbfeq-ij-mineral#3 1 tab PO DAILY 11/25/22 04/03/24 History 375 mg-300 mg-25 mg-0.5 mg tablet multivitamin (Multiple Vitamins 1 tab PO DAILY 11/25/22 04/03/24 History tablet) nitroglycerin 2 % transdermal 0.5 inch transdermal Q6H PRN 11/25/22 04/03/24 History ointment (Nitro-Bid) Allergies Allergy/AdvReac Type Severity Reaction Status Date / Time No Known Drug Allergies Allergy Verified 02/20/24 13:21 Exam Narrative: Exam Narrative: GEN: Alert and oriented, answering questions appropriately HEENT: EOMIs bilaterally, no scleral icterus CV: RRR, + systolic murmur heard across precordium and into left mid axillary line R: LCTA bilaterally without concerning wheezing Ext: wwp, no concerning edema Skin: No concerning skin lesions or rashes on exposed skin Neuro: Nonfocal Psych: Appropriate Const: Vital Signs, click to edit/add: Vital Signs - 24 hr 04/03/24 09:11 04/03/24 11:04 04/03/24 11:10 Temperature 98.8 F Pulse Rate 56 L 60 62 Respiratory Rate 16 16 16 Blood Pressure 141/78 H 138/81 139/83 Pulse Oximetry 98 98 100 Oxygen Delivery Me thod Room Air Nasal Cannula Nasal Cannula Oxygen Flow Rate 2 2 04/03/24 11:15 04/03/24 11:30 04/03/24 11:45 Temperature Pulse Rate 53 L 54 L 51 L Respiratory Rate 16 16 16 Blood Pressure 135/82 106/63 118/74 Pulse Oximetry 100 100 100 Oxygen Delivery Me thod Nasal Cannula Nasal Cannula Nasal Cannula Oxygen Flow Rate 2 2 2 04/03/24 15:48 04/03/24 15:55 04/03/24 16:00 Temperature 98.6 F Pulse Rate 68 66 67 Respiratory Rate 16 14 16 Blood Pressure 172/83 H 162/84 H 172/91 H Pulse Oximetry 99 98 99 Oxygen Delivery Me thod Room Air Oxygen Flow Rate 04/03/24 16:05 04/03/24 16:10 04/03/24 16:15 Temperature 98.4 F Pulse Rate 66 64 65 Respiratory Rate 16 13 14 Blood Pressure 148/93 H 168/91 H 163/85 H Pulse Oximetry 99 99 98 Oxygen Delivery Me thod Oxygen Flow Rate 04/03/24 16:45 04/03/24 16:59 04/03/24 17:00 Temperature 97.2 F L 97.3 F L 97.3 F L Pulse Rate 61 63 62 Respiratory Rate 16 14 16 Blood Pressure 143/84 H 161/81 H 150/77 H Pulse Oximetry 100 100 100 Oxygen Delivery Me thod Room Air Room Air Room Air Oxygen Flow Rate 04/03/24 17:15 04/03/24 17:30 04/03/24 18:00 Temperature 97.3 F L 97.3 F L 97.7 F Pulse Rate 63 66 64 Respiratory Rate 16 16 16 Blood Pressure 143/74 H 122/76 153/86 H Pulse Oximetry 97 98 98 Oxygen Delivery Me thod Room Air Room Air Room Air Oxygen Flow Rate 04/03/24 18:30 04/03/24 19:30 Temperature 98.2 F 98.8 F Pulse Rate 65 63 Respiratory Rate 16 16 Blood Pressure 143/65 H 147/79 H Pulse Oximetry 98 99 Oxygen Delivery Me thod Room Air Room Air Oxygen Flow Rate Assessment and Plan Assessment and plan (1) History of left hip replacement: Problem comment: - Melanie, 04/03/24 Status: Acute (2) Hypertension: Problem comment: - restart home medications tomorrow morning, pending blood pressure Status: Acute (3) CKD stage G3a/A1, GFR 45-59 and albumin creatinine ratio <30 mg/g: Problem comment: - follow creatinine during stay, resume blood pressure medications as blood pressure allows Status: Acute (4) Mitral stenosis: Problem comment: - follows with cardiology as an outpatient Status: Acute (5) Aortic stenosis: Problem comment: - s/p AVR 2019, removal of hardware (wire) 12/2023 Status: Acute Plan - pain management and prophylaxis per orthopedic surgery team - continue home medications for comorbidities - anticipate routine postoperative course
[2024-04-03] MEDS: OXYCODONE 5 MG TABLET PO (20:35)
[2024-04-04] MEDS: ACETAMINOPHEN 500 MG TABLET 1000 MG PO ×2 (00:02→05:54)
[2024-04-04 03:00] VITALS: BP 133/83; PULSE 71; RESP 16; TEMP 37.3; O2SAT 96
[2024-04-04] MEDS: OXYCODONE 5 MG TABLET PO ×2 (03:08→08:29)
[2024-04-04] MEDS: CEFAZOLIN 2 GM in 0.9 % SODIUM CHLORIDE Mini-bag 100 ML IVPB (03:10)
--- NOTE | 2024-04-04 06:17 | PC.NURSE ---
End of shift: AxOx4, cooperative, pleasant. Continent of the bladder. A1 GB W to the bathroom. Tolerating reg diet/fluids well. Pain managed with PRN oxy, scheduled Tylenol, active ice, repositioning. IV SL. Abx complete. Pt appears resting watching television with call light in reach.
[2024-04-04 06:47] LABS: Basophils Absolute Auto 0.03 K/uL (0.00-0.30); Basophils Percent Auto 0.3 % (0.0-3.0); Eosinophils Absolute Auto 0.04 K/uL (0.00-0.50); Eosinophils Percent Auto 0.4 % (0.0-7.0); Hematocrit 34.9 % (37.0-53.0); Hemoglobin* 11.8 gm/dL (13.5-17.5); Immature Granulocytes Abs Auto 0.02 K/uL (0.00-0.30); Immature Granulocytes Pct Auto 0.2 %; Lymphocytes Percent Auto 8.4 % (20-44); Mean Corpuscular HGB Conc 34 gm/dL (32-36); Mean Corpuscular Hemoglobin 32 pg (26-34); Mean Corpuscular Volume 96 fL (80-100); Neutrophils Percent Auto 80.7 % (42.0-72.0); Platelet Count* 124 K/uL (140-440); RDW Coefficient of Variation % 13.3 % (11.5-15.5); Red Blood Count 3.65 m/uL (4.30-5.90); White Blood Count* 9.03 K/uL (4.50-11.00)
[2024-04-04 06:51] LABS: Slide Review Reflex No
[2024-04-04 07:02] LABS: Potassium* 4.2 mmol/L (3.6-5.1); Sodium* 131 mmol/L (135-149)
[2024-04-04 07:05] LABS: Blood Urea Nitrogen* 18 mg/dL (7-30); Est. Creatinine Clearance* 70.07; Estimated Glomerular Filt Rate 79 ml/min
[2024-04-04] MEDS: lisinopriL 20 MG TABLET PO (08:28)
[2024-04-04] MEDS: hydroCHLOROthiazide 25 MG TABLET PO (08:29)
[2024-04-04] MEDS: OMEPRAZOLE 20 MG CAPSULE DR PO (08:29)
[2024-04-04] MEDS: AMLODIPINE 5 MG TABLET PO (08:29)
[2024-04-04] MEDS: RIVAROXABAN 10 MG TABLET PO (08:29)
[2024-04-04] MEDS: SENNOSIDES 1 TAB TABLET 2 TAB PO (08:29)
[2024-04-04] MEDS: PARoxetine 20 MG TABLET PO (08:30)
--- NOTE | 2024-04-04 08:38 | P.ORPN_ITS ---
Subjective Subjective Date Seen: 04/04/24 Principal diagnosis: Status postop day 1, left total hip arthroplasty - anterior approach Interval history: Patient reports doing well. No acute events over night. Pain is not significant, and managed with scheduled and PRN medications, ice. DVT prophylaxis: Rivaroxaban, SCDs, walking. Denies fevers, chills, aches, N/V, CP, SOB/RUFF, or lightheadedness. States that he sees his learning support assistant in May 2024. He takes aspirin once daily. Ortho Exam Narrative Exam Narrative: -Patient appears comfortable in recliner, after just walking from the bathroom; no apparent acute distress -Alert and oriented times 3 -Operative hip mildly swollen; soft tissues supple; no obvious erythema. No ecchymosis. Warmth appropriate -Surgical dressing clean, dry, intact; no obvious drainage, no erythematous streaking peripheral to the bandage -Bilateral calves soft and supple; no significant swelling, edema, tenderness, erythema, discoloration, warmth, or palpable cords -2+ DP/PT pulses, intact dermatomes and myotomes distally (5/5 strength). Numbness about the lateral femoral cutaneous nerve distribution. Const Vital Signs, click to edit/add: Vital Signs - 24 hr 04/03/24 09:11 04/03/24 11:04 04/03/24 11:10 Temperature 98.8 F Pulse Rate 56 L 60 62 Pulse Rate [Pulse Oximeter] Respiratory Rate 16 16 16 Blood Pressure 141/78 H 138/81 139/83 Blood Pressure [Left Arm] Pulse Oximetry 98 98 100 Oxygen Delivery Method Room Air Nasal Cannula Nasal Cannula Oxygen Flow Rate 2 2 04/03/24 11:15 04/03/24 11:30 04/03/24 11:45 Temperature Pulse Rate 53 L 54 L 51 L Pulse Rate [Pulse Oximeter] Respiratory Rate 16 16 16 Blood Pressure 135/82 106/63 118/74 Blood Pressure [Left Arm] Pulse Oximetry 100 100 100 Oxygen Delivery Method Nasal Cannula Nasal Cannula Nasal Cannula Oxygen Flow Rate 2 2 2 04/03/24 15:48 04/03/24 15:55 04/03/24 16:00 Temperature 98.6 F Pulse Rate 68 66 67 Pulse Rate [Pulse Oximeter] Respiratory Rate 16 14 16 Blood Pressure 172/83 H 162/84 H 172/91 H Blood Pressure [Left Arm] Pulse Oximetry 99 98 99 Oxygen Delivery Method Room Air Oxygen Flow Rate 04/03/24 16:05 04/03/24 16:10 04/03/24 16:15 Temperature 98.4 F Pulse Rate 66 64 65 Pulse Rate [Pulse Oximeter] Respiratory Rate 16 13 14 Blood Pressure 148/93 H 168/91 H 163/85 H Blood Pressure [Left Arm] Pulse Oximetry 99 99 98 Oxygen Delivery Method Oxygen Flow Rate 04/03/24 16:45 04/03/24 16:59 04/03/24 17:00 Temperature 97.2 F L 97.3 F L 97.3 F L Pulse Rate 61 63 62 Pulse Rate [Pulse Oximeter] Respiratory Rate 16 14 16 Blood Pressure 143/84 H 161/81 H 150/77 H Blood Pressure [Left Arm] Pulse Oximetry 100 100 100 Oxygen Delivery Method Room Air Room Air Room Air Oxygen Flow Rate 04/03/24 17:15 04/03/24 17:30 04/03/24 18:00 Temperature 97.3 F L 97.3 F L 97.7 F Pulse Rate 63 66 64 Pulse Rate [Pulse Oximeter] Respiratory Rate 16 16 16 Blood Pressure 143/74 H 122/76 153/86 H Blood Pressure [Left Arm] Pulse Oximetry 97 98 98 Oxygen Delivery Method Room Air Room Air Room Air Oxygen Flow Rate 04/03/24 18:30 04/03/24 19:30 04/03/24 20:30 Temperature 98.2 F 98.8 F 98.8 F Pulse Rate 65 63 66 Pulse Rate [Pulse Oximeter] Respiratory Rate 16 16 16 Blood Pressure 143/65 H 147/79 H 157/85 H Blood Pressure [Left Arm] Pulse Oximetry 98 99 98 Oxygen Delivery Method Room Air Room Air Room Air Oxygen Flow Rate 04/03/24 21:30 04/03/24 22:30 04/03/24 23:00 Temperature 99.3 F 99.3 F Pulse Rate 75 70 Pulse Rate [Pulse Oximeter] Respiratory Rate 16 16 16 Blood Pressure 157/83 H 160/87 H Blood Pressure [Left Arm] Pulse Oximetry 97 97 96 Oxygen Delivery Method Room Air Room Air Room Air Oxygen Flow Rate 04/03/24 23:00 04/04/24 03:00 Temperature 99.0 F 99.1 F Pulse Rate Pulse Rate [Pulse Oximeter] 70 71 Respiratory Rate 16 16 Blood Pressure Blood Pressure [Left Arm] 152/76 H 133/83 Pulse Oximetry 96 96 Oxygen Delivery Method Room Air Room Air Oxygen Flow Rate Assessment and Plan Assessment and plan (1) History of left hip replacement: Problem details: Left total hip arthroplasty-anterior approach (04/03/2024, Dr. Navarro) Status: Acute (2) Hypertension: Problem details: - restart home medications tomorrow morning, pending blood pressure Status: Acute (3) CKD stage G3a/A1, GFR 45-59 and albumin creatinine ratio <30 mg/g: Problem details: - follow creatinine during stay, resume blood pressure medications as blood pressure allows Status: Acute (4) Mitral stenosis: Problem details: - follows with cardiology as an outpatient Status: Acute (5) Aortic stenosis: Problem details: - s/p AVR 2019, removal of hardware (wire) 12/2023 Status: Acute Plan - Complete 23 hour perioperative antibiotics. - PT/OT consult for education and assistance. - Social work consult for discharge planning - Prescribed analgesics as needed - DVT prophylaxis: 5 days rivaroxaban followed by 81 mg aspirin by mouth twice daily, walking, and SCDs. After the month of rivaroxaban and twice daily aspirin, he may return to his once daily 81 mg aspirin. Spoke to hospitalist about this aspirin regimen; okay to not have daily aspirin for 5 days while on rivaroxaban. - Anticipation is for discharge to home with family/friends today 04/04/24 if the patient remains medically stable, pain is controlled, and they are safe with mobilization. - History of constipation: Please encourage patient to continue senna in the postoperative time as well as peaches, pears, prunes, blueberries
[2024-04-04 09:45] VITALS: BP 135/67; PULSE 63; RESP 16; TEMP 37.3; O2SAT 99
--- NOTE | 2024-04-04 10:54 | PC.NURSE ---
Discharge - Pt alert, oriented, cooperative. Up with standby assistance and walker/gait belt. Family at bedside. Reported pain in operative hip as tolerable, given medication per MAR to pre-medication for therapies at pt request. Tolerating RA, regular diet/fluids. Denies n/v, SOB, lightheadedness. Continent of bladder during shift. IV removed with catheter intact. D/C education given to pt and spouse with verbalized understanding. PT d/c to home via wheelchair with spouse at approximately 1040.
== END 2024-04-04 10:40 | disposition home or self-care (01) ==
LOC: OR 08:22 → MEDSURG 08:22
PROVIDERS: PCP Internal Medicine; Visit Provider Orthopaedic Surgery Sports Medicine
PROC: (CPT 27130; principal; 2024-04-03 10:45)
DX: M16.12 Unilateral primary osteoarthritis, left hip (principal); G89.18 Other acute postprocedural pain; I12.9 Hypertensive chronic kidney disease with stage 1 through stage 4 chronic kidney disease, or unspecified chronic kidney disease; N18.31 Chronic kidney disease, stage 3a; K21.9 Gastro-esophageal reflux disease without esophagitis; I25.10 Atherosclerotic heart disease of native coronary artery without angina pectoris; F41.9 Anxiety disorder, unspecified; Z79.01 Long term (current) use of anticoagulants; Z95.2 Presence of prosthetic heart valve; Z95.1 Presence of aortocoronary bypass graft; Z85.46 Personal history of malignant neoplasm of prostate; Z79.82 Long term (current) use of aspirin; I08.0 Rheumatic disorders of both mitral and aortic valves
CPT/HCPCS: 27130; 01214; 36415; 64450; 73501; 76000; 76942; 82565; 84132; 84295; 84520; 85025; 86850; 86900; 86901; 97110; 97116; 97161; 97165; 97530; 97535; 99100; A9270; C1776; J0330; J0690; J1100; J1171; J2250; J2405; J2704; J2795; J3010; J3490; J7120